=== PATIENT | male | born 1960 | race Caucasian/White ===

== ENCOUNTER → 2018-01-13 | Outpatient (CLI) | payer BC ==
--- NOTE | 2018-01-13 12:42 | RADIOLOGY REPORT (SQ) ---
EXAM DESCRIPTION: CHEST PA/LATERAL COMPLETED DATE/TIME: 01/13/2018 12:20 pm REASON FOR STUDY: COUGH COMPARISON: AP chest 03/13/2010 EXAM PARAMETERS: NUMBER OF VIEWS: two views TECHNIQUE: Digital Frontal and Lateral radiographic views of the chest acquired. RADIATION DOSE: NA LIMITATIONS: none FINDINGS: LUNGS AND PLEURA: Right middle lobe consolidation worrisome for pneumonia. This should be followed to radiographic clearing, to ensure there is no underlying hilar or endobronchial lesion. Left lung well inflated and clear. No pleural effusion. No pneumothorax. MEDIASTINUM AND HILAR STRUCTURES: No masses or contour abnormalities. HEART AND VASCULAR STRUCTURES: Heart normal size. No evidence for failure. BONES: No acute findings. HARDWARE: Lap band prosthesis bottom edge of the field of view OTHER: No other significant finding. IMPRESSION: Right middle lobe pneumonia. This should be followed to radiographic clearing. TECHNICAL DOCUMENTATION: JOB ID: [id number] [employer]- All Rights Reserved Reading location - IP/workstation name: [email or web address]
== END ==
LOC: OD 12:13
PROVIDERS: ATTEND Nurse Practitioner Acute Care
DX: J18.9 Pneumonia, unspecified organism (principal)
CPT/HCPCS: 71046

== ENCOUNTER → 2018-01-27 | Outpatient (CLI) | payer BC ==
--- NOTE | 2018-01-27 13:37 | RADIOLOGY REPORT (SQ) ---
EXAM DESCRIPTION: CHEST PA/LATERAL COMPLETED DATE/TIME: 01/27/2018 11:59 am REASON FOR STUDY: PNEUMONIA OF RT MIDDLE LOBE DUE TO INFECTIOUS ORGANISM COMPARISON: 01/13/2018 EXAM PARAMETERS: NUMBER OF VIEWS: two views TECHNIQUE: Digital Frontal and Lateral radiographic views of the chest acquired. RADIATION DOSE: NA LIMITATIONS: none FINDINGS: LUNGS AND PLEURA: Significant resolution of the right middle lobe pneumonia. Left lung is clear. MEDIASTINUM AND HILAR STRUCTURES: No masses or contour abnormalities. HEART AND VASCULAR STRUCTURES: Heart normal size. No evidence for failure. BONES: No acute findings. HARDWARE: None in the chest. OTHER: No other significant finding. IMPRESSION: Significant resolution of the right middle lobe pneumonia. TECHNICAL DOCUMENTATION: JOB ID: [id number] [employer]- All Rights Reserved Reading location - IP/workstation name: [email or web address]
== END ==
LOC: OD 11:48
PROVIDERS: ATTEND Nurse Practitioner Family
DX: J18.1 Lobar pneumonia, unspecified organism (principal)
CPT/HCPCS: 71046

== ENCOUNTER 2018-07-30 15:10 | Inpatient (IN) | payer BC ==
[2018-07-30 16:24] LABS: ABSOLUTE LYMPHOCYTES (AUTO) 0.6 10^3/uL (0.5-4.7); ABSOLUTE NEUT (AUTO) 8.3 10^3/uL (1.7-8.2); BASOPHILS % (AUTO) 0.3 % (0-2); EOSINOPHILS % (AUTO) 0.1 % (0-6); HEMATOCRIT 49.2 % (37.9-51.0); HEMOGLOBIN 16.7 g/dL (13.5-17.0); LYMPHOCYTES % (AUTO) 6.3 % (13-45); MEAN CORPUSCULAR HEMOGLOBIN 29.8 pg (27.0-33.4); MEAN CORPUSCULAR HGB CONC 33.9 g/dL (32.0-36.0); MEAN CORPUSCULAR VOLUME 88 fl (80-97); MONOCYTES % (AUTO) 9.9 % (3-13); PLATELET COUNT 150 10^3/uL (150-450); RED BLOOD COUNT 5.61 10^6/uL (4.35-5.55); RED CELL DISTRIBUTION WIDTH 14.4 % (11.5-14.0); SEGMENTED NEUTROPHILS % (AUTO) 83.4 % (42-78); TOTAL CELLS COUNTED % (AUTO) 100 %; WHITE BLOOD COUNT 9.9 10^3/uL (4.0-10.5)
[2018-07-30 16:32] LABS: INTERNATIONAL RATION (INR) 1.12
[2018-07-30 16:33] LABS: PARTIAL THROMBOPLASTIN TIME 34.8 SEC (23.5-35.8)
[2018-07-30] MEDS ORDERED: DILTIAZEM HCL INJ 25 MG/5 ML VIAL IV ONE (16:33)
[2018-07-30] MEDS ORDERED: ACETAMINOPHEN 325 MG TABLET PO ONE (16:33)
[2018-07-30] MEDS ORDERED: DILTIAZEM HCL/D5W 125 MG/125 ML RTUINJ IV PRN (16:33)
[2018-07-30] MEDS ORDERED: NORMAL SALINE 1000 ML 1,000 ML IV ONE (16:34)
--- NOTE | 2018-07-30 16:38 | ER Document Report ---
ED General - General Chief Complaint: Cough Stated Complaint: CHEST PAIN Time Seen by Provider: 07/30/18 16:07 Information source: Patient Notes: Patient is a 57-year-old male with minimal past medical history who presents today with 4 days of a nonproductive dry cough. He is also had some intermittent fevers and body aches. He denies any headache, chest pain, palpitations, calf pain or leg swelling, vomiting, diarrhea, or rash. He went to see his primary care physician who told him that he had an irregular hea rtbeat and was told to come to the emergency department. Again the patient denies any palpitations, chest pain, or leg swelling. Patient states he has not taken any cough medications that contain any stimulants such as Sudafed. TRAVEL OUTSIDE OF THE [place] IN LAST 30 DAYS: No - HPI Onset: Other - See above Onset/Duration: Gradual Quality of pain: No pain Severity: Moderate Pain Level: 0 Associated symptoms: Other - See above Exacerbated by: Denies Relieved by: Denies Similar symptoms previously: No Recently seen / treated by doctor: Yes - Related Data Allergies/Adverse Reactions: No Known Allergies Allergy (Verified 03/31/14 11:31) Past Medical History - Social History Smoking Status: Unknown if Ever Smoked Cigarette use (# per day): No Family History: Reviewed & Not Pertinent Endocrine Medical History: Reports: Hx Diabetes Mellitus Type 2 - Immunizations Hx Diphtheria, Pertussis, Tetanus Vaccination: No Hx Pneumococcal Vaccination: 08/04/00 Review of Systems - Review of Systems Constitutional: Fever EENT: denies: Eye discharge, Nose congestion, Nose discharge Cardiovascular: denies: Chest pain, Palpitations, Syncope, Dizziness, Lightheaded Respiratory: Cough. denies: Hemoptysis, Short of breath Gastrointestinal: denies: Vomiting Genitourinary: denies: Dysuria Musculoskeletal: denies: Leg swelling Skin: Other - no hives. denies: Rash Neurological/Psychological: Other - no slurred speech -: Yes All other systems reviewed and negative Physical Exam - Vital signs Vitals: Temp Pulse Resp BP Pulse Ox 100 F 87 18 142/78 H 93 07/30/18 15:22 07/30/18 15:22 07/30/18 15:22 07/30/18 15:22 07/30/18 15:22 Notes: Reviewed vital signs and nursing note as charted by RN. CONSTITUTIONAL: Alert and oriented and responds appropriately to questions. Well-appearing; well-nourished HEAD: Normocephalic; atraumatic EYES: PERRL; Conjunctivae clear, sclerae non-icteric ENT: Normal nose; no rhinorrhea; moist mucous membranes; pharynx without lesions noted NECK: Supple without meningismus; non-tender; no cervical lymphadenopathy, no m asses CARD: Tachycardic and irregular; no murmurs; symmetric distal pulses RESP: Normal chest excursion without splinting or tachypnea; breath sounds clear and equal bilaterally; very scant bilateral wheezing with some scattered rhonchi without rales ABD/GI: Normal bowel sounds; non-distended; soft, non-tender; no palpable organomegaly or masses BACK: The back appears normal with a 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 Grooming and personal hygiene are appropriate. Course - Re-evaluation Re-evalutation: Given the above history and physical examination we will order blood work, blood cultures, fluids, antipyretics, influenza, obtain an EKG, and reassess. Heart rate is tachycardic. Patient denies chest pain or shortness of breath. Given the fever of 102.7 earlier today, without chest pain, I do believe pulmonary embolism to be extremely unlikely. 07/30/18 16:37 EKG shows a heart rate of 127, atrial fibrillation, normal axis, no obvious ST elevation or depression. Inverted T waves in lead III Vital signs are otherwise stable. I will provide a diltiazem bolus and a drip along with the Tylenol. A coagulation profile has been sent. 07/30/18 17:21 Heart rate has improved. Still no chest pain. X-ray shows a left lower lobe pneumonia. Antibiotics have been started. Blood cultures are pending. Patient is currently on a Cardizem drip. Patient will be admitted to the hospitalist service. - Vital Signs Vital signs: Temp Pulse Resp BP Pulse Ox 100 F 87 25 H 123/73 96 07/30/18 15:22 07/30/18 15:22 07/30/18 17:02 07/30/18 17:02 07/30/18 17:02 - Laboratory Result Diagrams: 07/30/18 16:00 07/30/18 16:00 Laboratory results interpreted by me: 07/30/18 07/30/18 16:00 16:00 RBC 5.61 H RDW 14.4 H Seg Neutrophils % 83.4 H Lymphocytes % 6.3 L Absolute Neutrophils 8.3 H Glucose 117 H ALT 11 L Critical Care Note - Critical Care Note Total time excluding time spent on procedures (mins): 35 Discharge - Discharge Clinical Impression: Atrial fibrillation with rapid ventricular response Left lower lobe pneumonia Qualifiers: Pneumonia type: due to unspecified organism Qualified Code(s): J18.1 - Lobar pneumonia, unspecified organism Condition: Fair Disposition: ADMITTED INPATIENT Admitting Provider: Hospitalist Unit Admitted: Telemetry Referrals: BEKA VIDAL FNP-C [Primary Care Provider] - Follow up as needed
[2018-07-30 16:46] LABS: ALANINE AMINOTRANSFERASE 11 U/L (21-72); ALBUMIN 4.1 g/dL (3.5-5.0); ALKALINE PHOSPHATASE 77 U/L (38-126); ANION GAP 10 (5-19); ASPARTATE AMINO TRANSFERASE 31 U/L (17-59); BILIRUBIN,DIRECT 0.3 mg/dL (0.0-0.4); BILIRUBIN,TOTAL 1.2 mg/dL (0.2-1.3); BLOOD UREA NITROGEN 19 mg/dL (7-20); CALCIUM 8.4 mg/dL (8.4-10.2); CARBON DIOXIDE 28 mmol/L (22-30); CHLORIDE 101 mmol/L (98-107); GLUCOSE 117 mg/dL (75-110); POTASSIUM 3.8 mmol/L (3.6-5.0); SODIUM 138.7 mmol/L (137-145); TOTAL PROTEIN 7.7 g/dL (6.3-8.2)
--- NOTE | 2018-07-30 17:13 | RADIOLOGY REPORT (SQ) ---
EXAM DESCRIPTION: CHEST 2 VIEWS COMPLETED DATE/TIME: 07/30/2018 5:04 pm REASON FOR STUDY: 1, cough; fever COMPARISON: 03/13/2010 EXAM PARAMETERS: NUMBER OF VIEWS: two views TECHNIQUE: Digital Frontal and Lateral radiographic views of the chest acquired. RADIATION DOSE: NA LIMITATIONS: none FINDINGS: LUNGS AND PLEURA: Ill-defined opacification in the left base. MEDIASTINUM AND HILAR STRUCTURES: No masses or contour abnormalities. HEART AND VASCULAR STRUCTURES: Heart normal size. No evidence for failure. BONES: No acute findings. HARDWARE: None in the chest. OTHER: No other significant finding. IMPRESSION: Left lower lobe pneumonia. TECHNICAL DOCUMENTATION: JOB ID: [id number] [employer]- All Rights Reserved Reading location - IP/workstation name: [email or web address]
[2018-07-30] MEDS ORDERED: AZITHROMYCIN INJ 500 MG VIAL IV ONE (17:21)
[2018-07-30] MEDS ORDERED: CEFTRIAXONE 1 GM/D5W RTU 1 GM/50 ML RTUPB IV ONE (17:21)
[2018-07-30] MEDS ORDERED: ASPIRIN 325 MG TABLET PO ONE (17:23)
[2018-07-30 17:34] LABS: A TYPE INFLUENZA AG NEGATIVE (NEGATIVE); B INFLUENZA AG NEGATIVE (NEGATIVE)
[2018-07-30] MEDS ORDERED: ACETAMINOPHEN 325 MG TABLET PO PRN (17:48)
[2018-07-30] MEDS ORDERED: ONDANSETRON HCL INJ/PF 4 MG/2 ML SDV IV PRN (17:48)
[2018-07-30] MEDS ORDERED: LEVALBUTEROL HCL NEB 0.63 MG/3 ML AMPUL NEB PRN (17:48)
--- NOTE | 2018-07-30 18:15 | PDOC H&P ---
History of Present Illness Admission Date/PCP: 07/30/18 17:33 [facility] Patient complains of: Fever and shortness of breath for the last 5 days History of Present Illness: SHELBY CASTILLO is a 57 year old male with history of morbid obesity, ex-smoker, v entricular disease, diabetes, varicose veins came to the emergency room with complaints of fever and shortness of breath for the last 5 days. According to the patient the symptoms started 5 days ago associated with fever chills and sweating, cough with greenish sputum, decided to ride it out but unable to do so he went went to see the primary care physician today and the patient was told that he has a left-sided pneumonia and he has new onset atrial fibrillation so patient decided to came to the emergency room today. In the emergency room chest x-ray shows left lower lobe pneumonia and a EKG shows new onset atrial fibrillation patient was given azithromycin 400 mg IV in the ER and medical consult was called for admission. I went to talk to the patient patient is not in distress alert and oriented communicating very well. He confirmed with me the above history. Also told me he has a 2 episodes of pneumonia this year but he was not admitted he was treated by the PCP with outpatient antibiotic therapy. She did not receive the flu vaccination this year. Flu is negative in the ER. Cultures were sent from the ER. Past Medical History Endocrine Medical History: Reports: Diabetes Mellitus Type 2 Past Surgical History Past Surgical History: Reports: Other - History of lap band surgery for morbid obesity. Social History Smoking Status: Unknown if Ever Smoked - Advance Directive Resuscitation Status: Full Code Family History Family History: Reviewed & Not Pertinent Parental Family History Reviewed: Yes - Mother with melanoma, mother with leukemia. Children Family History Reviewed: Yes Sibling(s) Family History Reviewed.: Yes Medication/Allergy Home Medications: No Home Medications 03/31/14 Allergies/Adverse Reactions: No Known Allergies Allergy (Verified 03/31/14 11:31) Review of Systems Constitutional: PRESENT: chills, fever(s), other - sweating Eyes: ABSENT: visual disturbances Ears: ABSENT: hearing changes Nose, Mouth, and Throat: ABSENT: sore throat Cardiovascular: ABSENT: chest pain, dyspnea on exertion, edema, orthropnea Respiratory: PRESENT: cough, sputum, other - Wheezing. Gastrointestinal: PRESENT: nausea, vomiting, other - Patient vomited 3 times attributing it to severe coughing. Neurological: PRESENT: other - headaches Physical Exam Vital Signs: Temp Pulse Resp BP Pulse Ox 99.8 F 87 25 H 123/73 96 07/30/18 18:05 07/30/18 15:22 07/30/18 17:02 07/30/18 17:02 07/30/18 17:02 Intake & Output 07/29/18 07/30/18 07/31/18 06:59 06:59 06:59 Intake Total 2 Balance 2 Weight 130.9 kg General appearance: PRESENT: mild distress Head exam: PRESENT: atraumatic Eye exam: PRESENT: PERRLA Mouth exam: PRESENT: moist Neck exam: ABSENT: carotid bruit, JVD, lymphadenopathy, thyromegaly Respiratory exam: PRESENT: decreased breath sounds, wheezes Cardiovascular exam: PRESENT: irregular rhythm, tachycardia GI/Abdominal exam: PRESENT: normal bowel sounds, soft. ABSENT: distended, guarding, mass, organolmegaly, rebound, tenderness Neurological exam: PRESENT: alert, awake, oriented to person, oriented to place, oriented to time, oriented to situation, CN II-XII grossly intact. ABSENT: motor sensory deficit Psychiatric exam: PRESENT: appropriate affect, normal mood. ABSENT: homicidal ideation, suicidal ideation Results Laboratory Results: 07/30/18 16:00 07/30/18 16:00 07/30/18 07/30/18 16:00 16:00 WBC 9.9 RBC 5.61 H Hgb 16.7 Hct 49.2 MCV 88 MCH 29.8 MCHC 33.9 RDW 14.4 H Plt Count 150 Seg Neutrophils % 83.4 H Lymphocytes % 6.3 L Monocytes % 9.9 Eosinophils % 0.1 Basophils % 0.3 Absolute Neutrophils 8.3 H Absolute Lymphocytes 0.6 Absolute Monocytes 1.0 Absolute Eosinophils 0.0 Absolute Basophils 0.0 Sodium 138.7 Potassium 3.8 Chloride 101 Carbon Dioxide 28 Anion Gap 10 BUN 19 Creatinine 1.06 Est GFR ( Amer) > 60 Est GFR (Non-Af Amer) > 60 Glucose 117 H Calcium 8.4 Total Bilirubin 1.2 AST 31 ALT 11 L Alkaline Phosphatase 77 Total Protein 7.7 Albumin 4.1 07/30/18 16:00 Troponin I < 0.012 Impressions: Chest X-Ray 07/30/18 16:09 IMPRESSION: Left lower lobe pneumonia. Assessment & Plan - Diagnosis (1) Left lower lobe pneumonia Qualifiers: Pneumonia type: due to unspecified organism Qualified Code(s): J18.1 - Lobar pneumonia, unspecified organism Is this a current diagnosis for this admission?: Yes Plan: 07/30/2018-plan is to place the patient in telemetry. Started on IV antibiotics Rocephin 1 g IV daily Zithromax 500 mg IV daily sputum cultures blood cultures s ent already urine culture was requested. Done Xopenex nebulizations for wheezing. On oxygen 2 L via nasal cannula. (2) Atrial fibrillation with rapid ventricular response Is this a current diagnosis for this admission?: Yes Plan: 07/30/2018-for new onset atrial fibrillation requested for cardiology consult, echocardiogram was requested, discussed about blood thinners with the patient, started on heparin 5000 units subcu every 8 hours. Enzymes x3 was requested. Initial troponin was negative. (3) Obesity (BMI 30-39.9) Is this a current diagnosis for this admission?: Yes Plan: 07/30/2018-diet exercise weight loss lifestyle modification was discussed with the patient. The consult was requested. - Time Time Spent: 50 to 70 Minutes Medications reviewed and adjusted accordingly: Yes Anticipated discharge: Home
--- NOTE | 2018-07-30 19:55 | RADIOLOGY REPORT (SQ) ---
EXAM DESCRIPTION: CT CHEST WITHOUT COMPLETED DATE/TIME: 07/30/2018 7:42 pm REASON FOR STUDY: pneumonia COMPARISON: 07/30/2018 TECHNIQUE: CT scan performed of the chest without intravenous contrast. Images reviewed with lung, soft tissue and bone windows. Reconstructed coronal and sagittal MPR images reviewed. All images st ored on PACS. All CT scanners at this facility use dose modulation, iterative reconstruction, and/or weight based d osing when appropriate to reduce radiation dose to as low as reasonably achievable (ALARA). [facility]: Dose Right [facility]: CareDose [facility]: Dose Right [facility]: Teradose 4D [facility]: [employer] RADIATION DOSE: CT Rad equipment meets quality standard of care and radiation dose reduction techniq ues were employed. CTDIvol: 20.7 mGy. DLP: 836 mGy-cm. mGy. LIMITATIONS: No technical limitations. FINDINGS: LUNGS AND PLEURA: Diffuse patchy opacities in the left lower lobe with tree-in-bud appeara nce. Minimal similar findings in the right middle lobe. HILAR AND MEDIASTINAL STRUCTURES: Scattered nodes in mediastinum likely reactive. HEART AND VASCULAR STRUCTURES: No aneurysm. No pericardial effusion. UPPER ABDOMEN: Lap band surgery. THYROID AND OTHER SOFT TISSUES: No masses. No adenopathy. BONES: No significant finding. HARDWARE: None in the chest. OTHER: No other significant findings. IMPRESSION: Left lower lobe and minimal right middle lobe pneumonia. TECHNICAL DOCUMENTATION: JOB ID: [id number] Quality ID # [id number]: Final reports with documentation of one or more dose reduction techniques (e.g., Au tomated exposure control, adjustment of the mA and/or kV according to patient size, use of iterative reconstruction technique) 2010 [employer]- All Rights Reserved Reading location - IP/workstation name: [email or web address]
[2018-07-30 20:09] LABS: CREATINE KINASE MB 0.76 ng/mL (<4.55); TROPONIN I < 0.012 ng/mL
[2018-07-30] MEDS: NORMAL SALINE 1000 ML 1,000 ML IV PRN (20:16)
[2018-07-30] MEDS: HEPARIN SOD (PORCINE) 5,000 UNIT/ML 1 ML SYRINGE SUBCUT SCH (22:05)
[2018-07-30] MEDS: FAMOTIDINE 20 MG TABLET PO SCH (22:07)
[2018-07-30] MEDS: METHYLPREDNISOLONE INJ 40 MG/1 ML SDV IV SCH (22:11)
[2018-07-30] MEDS: ZOLPIDEM TARTRATE 5 MG TABLET PO PRN (22:11)
[2018-07-31 00:31] LABS: CREATINE KINASE MB 1.42 ng/mL (<4.55)
[2018-07-31 00:33] LABS: TROPONIN I < 0.012 ng/mL
[2018-07-31] MEDS: HEPARIN SOD (PORCINE) 5,000 UNIT/ML 1 ML SYRINGE SUBCUT SCH ×3 (06:21→21:37)
[2018-07-31] MEDS: METHYLPREDNISOLONE INJ 40 MG/1 ML SDV IV SCH ×3 (06:24→21:37)
[2018-07-31] MEDS ORDERED: DILTIAZEM HCL 60 MG TABLET PO ONE (07:45)
--- NOTE | 2018-07-31 09:34 | PDOC PROGRESS REPORT ---
Subjective Progress Note for:: 07/31/18 Subjective:: Patient is comfortably in the bed communicating very well no acute events in the last 24 hours. He complained about a couple of episodes of heavy sweating last night but no fever. His any chest pains palpitations. Reason For Visit: PNEUMONIA WITH ATRIAL FIB Physical Exam Vital Signs: Temp Pulse Resp BP Pulse Ox 97.6 F 89 18 131/90 H 97 07/31/18 07:44 07/31/18 07:44 07/31/18 07:44 07/31/18 07:44 07/31/18 07:44 Intake & Output 07/30/18 07/31/18 08/01/18 06:59 06:59 06:59 Intake Total 16 65 Output Total 0 600 Balance 16 -535 Weight 133.7 kg General appearance: PRESENT: no acute distress Head exam: PRESENT: atraumatic Eye exam: PRESENT: PERRLA Neck exam: ABSENT: carotid bruit, JVD, lymphadenopathy, thyromegaly Respiratory exam: PRESENT: other - Chest examination much improved wheezing both sides. Cardiovascular exam: PRESENT: irregular rhythm, other - Patient heart rate is around 100 and atrial fibrillation. GI/Abdominal exam: PRESENT: normal bowel sounds, soft. ABSENT: tenderness Extremities exam: PRESENT: full ROM. ABSENT: calf tenderness, clubbing, pedal edema Neurological exam: PRESENT: alert, awake, oriented to person, oriented to place, oriented to time, oriented to situation, CN II-XII grossly intact. ABSENT: motor sensory deficit Psychiatric exam: PRESENT: appropriate affect, normal mood. ABSENT: homicidal ideation, suicidal ideation Results Laboratory Results: 07/30/18 16:00 07/30/18 16:00 07/30/18 07/30/18 07/30/18 16:00 16:00 19:00 WBC 9.9 RBC 5.61 H Hgb 16.7 Hct 49.2 MCV 88 MCH 29.8 MCHC 33.9 RDW 14.4 H Plt Count 150 Seg Neutrophils % 83.4 H Lymphocytes % 6.3 L Monocytes % 9.9 Eosinophils % 0.1 Basophils % 0.3 Absolute Neutrophils 8.3 H Absolute Lymphocytes 0.6 Absolute Monocytes 1.0 Absolute Eosinophils 0.0 Absolute Basophils 0.0 Sodium 138.7 Potassium 3.8 Chloride 101 Carbon Dioxide 28 Anion Gap 10 BUN 19 Creatinine 1.06 Est GFR ( Amer) > 60 Est GFR (Non-Af Amer) > 60 Glucose 117 H Lactic Acid 1.1 Calcium 8.4 Total Bilirubin 1.2 AST 31 ALT 11 L Alkaline Phosphatase 77 Total Protein 7.7 Albumin 4.1 07/30/18 23:12 WBC RBC Hgb Hct MCV MCH MCHC RDW Plt Count Seg Neutrophils % Lymphocytes % Monocytes % Eosinophils % Basophils % Absolute Neutrophils Absolute Lymphocytes Absolute Monocytes Absolute Eosinophils Absolute Basophils Sodium Potassium Chloride Carbon Dioxide Anion Gap BUN Creatinine Est GFR ( Amer) Est GFR (Non-Af Amer) Glucose Lactic Acid 0.8 Calcium Total Bilirubin AST ALT Alkaline Phosphatase Total Protein Albumin 07/30/18 07/30/18 07/30/18 16:00 19:00 23:12 CK-MB (CK-2) 0.76 1.42 Troponin I < 0.012 < 0.012 < 0.012 Impressions: Chest CT 07/30/18 00:00 IMPRESSION: Left lower lobe and minimal right middle lobe pneumonia. Chest X-Ray 07/30/18 16:09 IMPRESSION: Left lower lobe pneumonia. Assessment & Plan - Diagnosis (1) Left lower lobe pneumonia Qualifiers: Pneumonia type: due to unspecified organism Qualified Code(s): J18.1 - Lobar pneumonia, unspecified organism Is this a current diagnosis for this admission?: Yes Plan: 07/30/2018-plan is to place the patient in telemetry. Started on IV antibiotics Rocephin 1 g IV daily Zithromax 500 mg IV daily sputum cultures blood cultures sent already urine culture was requested. Done Xopenex nebulizations for wh eezing. On oxygen 2 L via nasal cannula. 07/31/2018-chest CT was done yesterday shows left lower lobe pneumonia and right middle lobe pneumonia. Patient vital signs today temperature 97.6 blood pr essure 130/90. Oxygen 97% on room air. WBC is 9.9. The cultures are pending. Patient is on IV Rocephin 1 g daily, Zithromax 500 mg IV daily. And is to continue the present management. Sputum culture is pending. (2) Atrial fibrillation with rapid ventricular response Is this a current diagnosis for this admission?: Yes Plan: 07/30/2018-for new onset atrial fibrillation requested for cardiology consult, echocardiogram was requested, discussed about blood thinners with the patient, started on heparin 5000 units subcu every 8 hours. Enzymes x3 was requested. Initial troponin was negative. 07/31/2018-patient was started on Cardizem drip yesterday. Heart rate in the 70s-80s. I discontinued Cardizem drip started on p.o. Cardizem 60 mg every 8 hours. I requested the nurse to call me if the heart rate goes up more than 120, if necessary we going to put her back on Cardizem drip. Echocardiogram was done last night and report is pending. Patient is on heparin 5000 units every 8 hours. On the cardiology recommendations I am going to put her on Eliquis or Xarelto. (3) Obesity (BMI 30-39.9) Is this a current diagnosis for this admission?: Yes Plan: 07/30/2018-diet exercise weight loss lifestyle modification was discussed with the patient. The consult was requested. 07/31/2018-patient's weight is 133.7 kg again diet exercise and weight loss was advised.. - Time Time Spent with patient: 15-24 minutes Medications reviewed and adjusted accordingly: Yes Anticipated discharge: Home
[2018-07-31] MEDS ORDERED: METOPROLOL TARTRATE PF/INJ 5 MG/5 ML SDV IV PRN (09:37)
[2018-07-31] MEDS ORDERED: CEFTRIAXONE INJ 1000 MG VIAL IV SCH (10:00)
[2018-07-31] MEDS ORDERED: AZITHROMYCIN INJ 500 MG VIAL IV SCH (10:00)
[2018-07-31] MEDS: NORMAL SALINE 1000 ML 1,000 ML IV PRN (10:07)
[2018-07-31] MEDS: DOCUSATE SODIUM 100 MG/10 ML UDC PO SCH ×2 (10:07→10:09)
[2018-07-31] MEDS: CEFTRIAXONE SODIUM 1,000 MG in DEXTROSE 5%-WATER 50 ML IV SCH (11:20)
[2018-07-31] MEDS: FAMOTIDINE 20 MG TABLET PO SCH ×2 (11:20→21:37)
[2018-07-31 11:30] LABS: ALANINE AMINOTRANSFERASE 19 U/L (21-72); ALBUMIN 4.7 g/dL (3.5-5.0); ALKALINE PHOSPHATASE 93 U/L (38-126); ANION GAP 17 (5-19); ASPARTATE AMINO TRANSFERASE 35 U/L (17-59); BILIRUBIN,DIRECT 0.4 mg/dL (0.0-0.4); BILIRUBIN,TOTAL 1.2 mg/dL (0.2-1.3); BLOOD UREA NITROGEN 25 mg/dL (7-20); CALCIUM 9.3 mg/dL (8.4-10.2); CARBON DIOXIDE 20 mmol/L (22-30); CHLORIDE 108 mmol/L (98-107); GLUCOSE 170 mg/dL (75-110); POTASSIUM 4.3 mmol/L (3.6-5.0); SODIUM 145.3 mmol/L (137-145); TOTAL PROTEIN 8.4 g/dL (6.3-8.2)
[2018-07-31] MEDS ORDERED: METOPROLOL TARTRATE PF/INJ 5 MG/5 ML SDV IV ONE (12:00)
[2018-07-31] MEDS ORDERED: DILTIAZEM HCL 60 MG TABLET PO SCH (14:00)
--- NOTE | 2018-07-31 14:58 | EKG REPORT ---
SEVERITY:- ABNORMAL ECG - ATRIAL FIBRILLATION, V-RATE 101-155 BORDERLINE T ABNORMALITIES, INFERIOR LEADS : Confirmed by: Jamin Carvalho 31-Jul-2018 14:57:29
[2018-07-31] MEDS: AZITHROMYCIN 500 MG in DEXTROSE 5%-WATER 250 ML IV SCH (17:48)
[2018-07-31] MEDS: METOPROLOL TARTRATE 50 MG TABLET PO SCH (21:37)
[2018-07-31] MEDS: ZOLPIDEM TARTRATE 5 MG TABLET PO PRN (21:37)
--- NOTE | 2018-07-31 23:11 | PDOC CONSULTATION ---
Consultation-Blank Consultation: CARDIOLOGY CONSULTATION by Dr. Millard assessment on 07/31/2018. Patient seen at 11:30 AM on 07/31/2018. Note 60 minutes spent on this patient. With more than 50% of time spent in direct patient care. REASON FOR CONSULTATION: Patient with new onset atrial fibrillation. HISTORY OF PRESENT ILLNESS: Patient is a 57-year-old male who states that recently he had some cough and productive of greenish sputum. He also had fevers and chills. He went to his primary care physician who diagnosed him as having probably pneumonia and also found his heart rate to be irregular and sent him to the emergency room. In the emergency room the patient was found to be in atrial fibrillation. With a fast ventricular respons. The patient chest x-ray surgery was suggestive of left lower lobe pneumonia, and the patient CT scan showed a left lower lobe pneumonia and also a right middle lobe pneumonia. The patient initially was treated with IV Cardizem infusion, and at present the Cardizem drip has been stopped and the patient is a p.o. Cardizem. Of note the patient denies any chest pain or discomfort. He does have shortness of breath. There is no PND orthopnea. Surprisingly he is not aware of any irregular heartbeat or palpitations. The patient denies any prior such irregular heartbeat. PAST MEDICAL ILLNESS: The patient states in the past he had sleep apnea, on CPAP, and was a diabetic. He was also morbidly obese at that time, and after laparoscopic bariatric surgery for weight loss. Patient lost weight, and was no more a diabetic. And he did not need any antidiabetic treatment since he was not a diabetic anymore. He denies any chest hypertension. He denies any chest pain or discomfort. There is no history of coronary artery disease. No history of UT or anginal symptoms. No history of congestive heart failure. No prior history of atrial fibrillation. There is no history of PND orthopnea or syncope. No history of thyroid disease. No history of TIA or CVA. No history of asthma or COPD. Patient states when he was morbidly obese prior to his bariatric surgery he was using CPAP for sleep apnea, but with losing weight he has not had to use it anymore, and he states that his sleep apnea has resolved. There is no history of anxiety or depression. PAST SURGICAL HISTORY: Prior history of bariatric surgery/lap band surgery for morbid obesity. FAMILY HISTORY: The patient thinks his mother had CAD. Mother also had melanoma. ALLERGIES: There is no known allergies. SOCIAL HISTORY: The patient quit smoking more than 35 years ago. There is no history of EtOH abuse. DISPOSITION: The patient is a full code his is his surrogate healthcare decision maker. REVIEW OF SYSTEMS:REVIEW OF SYSTEMS: CONSTITUTIONAL: There is a history of fever and chills, but no rigors, and no generalized weakness, but complains of some fatigue. EAD: No history of headaches or head injury. EYES: No history of amblyopia diplopia no history of amaurosis fugax. EARS: No history of tinnitus. This patient has mild hearing loss, no vertigo. NOSE: The patient is seasonal allergies, but no hayfever. There is no nosebleeds. MOUTH: No altered taste sensation no ulcers in the mouth THROAT: No history of odynophagia dysphagia no recurrent sore throats. SKIN: No history of pruritus no history of allergies discoloration of the skin. No history of skin cancer, no history of psoriasis. NECK: No neck pain. No lymphadenopathy. No goiter. LUNGS: Recent symptoms of cough with greenish sputum, and chest x-ray and CTA of the chest show pneumonia. No history of asthma COPD no history of wheezing. No history of pulmonary embolism. No history of pleuritic chest pain no hemoptysis. No history of sleep apnea. No symptoms of upper or lower respiratory tract infections. HEART: No history of hypertension. No history of prior paroxysmal atrial fibrillation. No history of congestive heart failure .There is a history of UT anginal symptoms or coronary artery disease. No syncope. No history of leg edema no history of PND orthopnea. Denies any history of palpitations. In fact even when he is in atrial fibrillation with rapid ventricular response, the patient had no palpitations. ENDOCRINE:There is a prior history of diabetes. But he states after he lost weight after bariatric surgery, he was not a diabetic anymore, and is not on antidiabetic medications or antidiabetic diet. No history of heat or cold intolerance no history of polydipsia polyuria. The p atient has no hyperthyroidism or hypothyroidism.. RENAL: No history of chronic kidney disease. No symptoms of hematuria pyuria or dysuria. No symptoms of UTI. GI: History of bariatric/gastric bypass surgery in the past no history of GI bleed no history of GERD no history of peptic ulcer disease no history of fatty food intolerance. No history of hepatitis. No history of jaundice. No history of altered bowel movements. MUSCULOSKELETAL: Denies history of arthritis or collagen vascular disease. INSURANCE CLAIMS ADJUSTER: No history of TIA or CVA. No history of headaches migraines or seizures. No history of sleep apnea. PSYCHIATRIC: No history of anxiety or depression. No history of suicidal ideation. No history of homicidal ideation. VASCULAR: The patient does have ascending and descending thoracic aortic aneurysms which is stable and the patient is asymptomatic. No DVT. No history of calf or buttock claudication. HEMATOLOGICAL: No history of bleeding diathesis no history of clotting disorder s. PHYSICAL EXAMINATION: The patient is moderate to morbidly obese. He is well- groomed. He is in no acute distress. Selected Entries 07/31/18 11:31 Temperature 98.0 F Temperature Oral Source Pulse Rate 97 Respiratory 16 Rate Blood Pressure 130/79 H Blood Pressure 96 Mean BP Location Left Arm BP Position Sitting O2 Sat by Pulse 97 Oximetry Oxygen Delivery Room Air Method HEAD: Is atraumatic normocephalic. EYES: His pupils are equal round regular reactive to light accommodation there is no conjunctival pallor there is no scleral icterus. ENT: Is negative. NECK: Supple. There is mild JVD still present. Carotids are equal there is no bruit. There is no lymphadenopathy. There is no goiter. LUNGS: Decreased breath sounds in the in the left lower lobe, and the right middle lobe, with dry crackles. No rales of CHF. There is no chest wall tenderness. S1-S2 is heard S1 is of variable intensity. There is no S3 gallop there is no S4 gallop. There is systolic murmur of mitral regurgitation and tricuspid regurgitation present. There is no murmur of aortic stenosis or aortic regurgitation. There is no rub. Abdomen: Is obese. Nontender. Bowel sounds are well heard. There is no hepatosplenomegaly. EXTREMITIES: Femorals are deep. Femorals are diminished. There is no femoral bruits. Leg pulses are diminished. There is mild pedal edema. There is no DVT or cellulitis. There is no calf tenderness. There is no cyanosis or clubbing. INSURANCE CLAIMS ADJUSTER: The patient is conscious awake alert oriented x3 with no focal deficits. PSYCHIATRIC: The patient judgment and insight are intact his affect is normal 07/30/18 07/30/1818 16:00 16:00 16:00 WBC 9.9 RBC 5.61 H Hgb 16.7 Hct 49.2 MCV 88 MCH 29.8 MCHC 33.9 RDW 14.4 H Plt Count 150 PT 15.0 INR 1.12 APTT 34.8 Sodium Potassium Chloride Carbon Dioxide Anion Gap BUN Creatinine Est GFR (Non-Af Amer) Glucose Lactic Acid Calcium Magnesium Total Bilirubin Direct Bilirubin Neonat Total Bilirubin Neonat Direct Bilirubin Neonat Indirect Bili AST ALT Alkaline Phosphatase CK-MB (CK-2) Troponin I < 0.012 Total Protein Albumin 07/30/18 07/30/18 07/30/18 19:00 19:00 23:12 WBC RBC Hgb Hct MCV MCH MCHC RDW Plt Count PT INR APTT Sodium Potassium Chloride Carbon Dioxide Anion Gap BUN Creatinine Est GFR (Non-Af Amer) Glucose Lactic Acid 1.1 0.8 Calcium Magnesium Total Bilirubin Direct Bilirubin Neonat Total Bilirubin Neonat Direct Bilirubin Neonat Indirect Bili AST ALT Alkaline Phosphatase CK-MB (CK-2) 0.76 Troponin I < 0.012 Total Protein Albumin 07/30/18 07/31/18 23:12 09:31 WBC RBC Hgb Hct MCV MCH MCHC RDW Plt Count PT INR APTT Sodium 145.3 H Potassium 4.3 Chloride 108 H Carbon Dioxide 20 L Anion Gap 17 BUN 25 H Creatinine 0.67 Est GFR (Non-Af Amer) > 60 Glucose 170 H Lactic Acid Calcium 9.3 Magnesium 2.3 Total Bilirubin 1.2 Direct Bilirubin 0.4 Neonat Total Bilirubin Not Reportable Neonat Direct Bilirubin Not Reportable Neonat Indirect Bili Not Reportable AST 35 ALT 19 L Alkaline Phosphatase 93 CK-MB (CK-2) 1.42 Troponin I < 0.012 Total Protein 8.4 H Albumin 4.7 Home Meds Table No Home Medications 03/31/14 07/30/18 16:33 Acetaminophen [Tylenol 325 mg Tablet] 975 mg PO NOW ONE Diltiazem HCl [Cardizem Inj 25 mg/5 ml Vial] 10 mg IV NOW ONE 07/30/18 16:34 Normal Saline 1000 ml [NaCl 0.9% 1000 ml IV Soln] 1,000 ml IV BOLUS 07/30/18 17:21 Azithromycin [Zithromax Inj 500 mg Vial] 500 mg IV IVBAG (ED) ONE Ceftriaxone 1 gm/D5w RTU [Rocephin RTU 1 gm/D5w 50 ml Premix] 1 gm in 50 ml IV NOW 07/30/18 17:23 Aspirin [Aspirin 325 mg Tablet] 325 mg PO NOW ONE 07/30/18 17:48 Acetaminophen [Tylenol 325 mg Tablet] 650 mg PO Q4HP PRN Levalbuterol HCl [Xopenex Neb 0.63 mg/3 ml Ampul] 0.63 mg NEB RTQ4HP PRN Normal Saline 1000 ml [NaCl 0.9% 1000 ml IV Soln] 1,000 ml IV CONTINUOUS Ondansetron HCl/Pf [Zofran Inj/Pf 4 mg/2 ml Sdv] 4 mg IV Q6HP PRN Zolpidem Tartrate [Ambien 5 mg Tablet] 5 mg PO HSP PRN 07/30/18 22:00 Famotidine [Pepcid 20 mg Tablet] 20 mg PO Q12 Heparin Sodium,Porcine [Heparin Inj 5,000 Units/ml 1 ml Syringe] 5,000 unit SUBCUT Q8 Methylprednisolone Sod Succ/Pf [Solu-Medrol Inj/Pf 40 mg/1 ml Sdv] 40 mg IV Q8 07/31/18 03:15 Flu Vacc [id number](6Mos Up)/Pf [Fluarix Adlt Quad Vac 0.5 ml Syr] 0.5 ml IM .DISCHARGE PRN 07/31/18 07:45 Diltiazem HCl [Cardizem 60 mg Tablet] 60 mg PO NOW ONE 07/31/18 09:37 Metoprolol Tartrate [Lopressor Inj/Pf 5 mg/5 ml Sdv] 5 mg IV Q4HP PRN 07/31/18 10:00 Docusate Sodium [Colace Udc 100 mg/10 ml Oral Soln] 100 mg PO DAILY 07/31/18 11:30 Ceftriaxone Sodium [Rocephin Inj 1000 mg Vial] 1,000 mg Dextrose 5%-Water [D5w 50 ml IV Soln] 50 ml IV DAILY 07/31/18 12:00 Metoprolol Tartrate [Lopressor Inj/Pf 5 mg/5 ml Sdv] 2.5 mg IV NOW ONE 07/31/18 18:00 Azithromycin [Zithromax Inj 500 mg Vial] 500 mg Dextrose 5%-Water [D5w 250 ml IV Soln] 250 ml IV QPM 07/31/18 22:00 Metoprolol Tartrate [Lopressor 50 mg Tablet] 50 mg PO Q12 EKG: Shows atrial fibrillation. Diffuse nonspecific ST-T changes minor. The patient's chest x-ray: Shows left lower lobe pneumonia. The patient's CTA of the chest shows no pulmonary emboli. There is a left lower lobe pneumonia, and a right middle lobe pneumonia. No heart failure. ECHOCARDIOGRAM: Is a poor quality study. Probably the patient has low normal LV ejection fraction. IMPRESSION/RECOMMENDATION: 1. New onset atrial fibrillation with rapid ventricular response: At present the patient is off the IV Cardizem drip. We will change the patient's Cardizem to metoprolol. 2. Pneumonia left lower lobe, and right lower lobe, continue antibiotics. 3. Obesity. 4. The patient's corrected chads vas 2 score is actually 0. Hence would recommend that the patient be on 325 milligrams of aspirin. Later would recommend the patient have a IV Lexiscan Cardiolite stress test. Note medications reviewed, and medication adjusted. Management plan discussed with the attending physician on the case discussed with the patient patient's about the patient's clinical condition. Note medical decision making is of high complexity. 60 minutes spent on this patient, with more than 50% of time spent in direct patient care. We will follow with you
[2018-08-01] MEDS: NORMAL SALINE 1000 ML 1,000 ML IV PRN (01:17)
[2018-08-01] MEDS: METHYLPREDNISOLONE INJ 40 MG/1 ML SDV IV SCH ×3 (05:58→21:16)
[2018-08-01] MEDS: HEPARIN SOD (PORCINE) 5,000 UNIT/ML 1 ML SYRINGE SUBCUT SCH ×3 (05:59→21:16)
[2018-08-01 08:09] LABS: ABSOLUTE LYMPHOCYTES (AUTO) 0.7 10^3/uL (0.5-4.7); ABSOLUTE MONOCYTES (AUTO) 0.5 10^3/uL (0.1-1.4); ABSOLUTE NEUT (AUTO) 11.9 10^3/uL (1.7-8.2); BASOPHILS % (AUTO) 0.1 % (0-2); HEMOGLOBIN 15.1 g/dL (13.5-17.0); LYMPHOCYTES % (AUTO) 5.1 % (13-45); MEAN CORPUSCULAR HEMOGLOBIN 29.6 pg (27.0-33.4); MEAN CORPUSCULAR HGB CONC 34.3 g/dL (32.0-36.0); MEAN CORPUSCULAR VOLUME 86 fl (80-97); MONOCYTES % (AUTO) 4.1 % (3-13); PLATELET COUNT 163 10^3/uL (150-450); RED BLOOD COUNT 5.11 10^6/uL (4.35-5.55); RED CELL DISTRIBUTION WIDTH 14.2 % (11.5-14.0); SEGMENTED NEUTROPHILS % (AUTO) 90.7 % (42-78); TOTAL CELLS COUNTED % (AUTO) 100 %; WHITE BLOOD COUNT 13.2 10^3/uL (4.0-10.5)
[2018-08-01 08:10] LABS: INTERNATIONAL RATION (INR) 1.11; PROTHROMBIN TIME 14.8 SEC (11.4-15.4)
[2018-08-01 08:27] LABS: ANION GAP 9 (5-19); BLOOD UREA NITROGEN 27 mg/dL (7-20); CALCIUM 8.3 mg/dL (8.4-10.2); CARBON DIOXIDE 24 mmol/L (22-30); CHLORIDE 105 mmol/L (98-107); GLUCOSE 164 mg/dL (75-110); POTASSIUM 4.1 mmol/L (3.6-5.0); SODIUM 137.8 mmol/L (137-145)
[2018-08-01] MEDS ORDERED: DIGOXIN INJ 0.5 MG/2 ML AMPULE ONE (08:37)
[2018-08-01] MEDS ORDERED: DIGOXIN INJ 0.5 MG/2 ML AMPULE IV ONE (09:30)
[2018-08-01] MEDS: FAMOTIDINE 20 MG TABLET PO SCH ×2 (10:08→21:16)
[2018-08-01] MEDS: METOPROLOL TARTRATE 50 MG TABLET PO SCH ×2 (10:08→21:16)
[2018-08-01] MEDS: CEFTRIAXONE SODIUM 1,000 MG in DEXTROSE 5%-WATER 50 ML IV SCH (10:08)
[2018-08-01] MEDS ORDERED: DILTIAZEM HCL/D5W 125 MG/125 ML RTUINJ IV PRN (10:20)
[2018-08-01] MEDS ORDERED: NORMAL SALINE 1000 ML 1,000 ML IV PRN (10:30)
[2018-08-01] MEDS: DOCUSATE SODIUM 100 MG/10 ML UDC PO SCH (10:53)
--- NOTE | 2018-08-01 12:01 | PDOC PROGRESS REPORT ---
Subjective Progress Note for:: 08/01/18 Subjective:: Patient is comfortably in the bed communicating very well no acute events in the last 24 hours. He complained about a couple of episodes of heavy sweating last night but no fever. His any chest pains palpitations. 08/01/2018-patient found to be in rapid A. fib with heart rate of around 150 this morning he was transferred to [facility]. He was given a bolus of digoxin. Was started on Cardizem drip. We are going to titrate the Cardizem drip as per the protocol. Presently patient is asymptomatic. And is afebrile. Reason For Visit: AFIB,PNEUMONIA Physical Exam Vital Signs: Temp Pulse Resp BP Pulse Ox 97.3 F 103 H 20 128/89 H 93 08/01/18 11:44 08/01/18 11:48 08/01/18 11:44 08/01/18 11:48 08/01/18 11:44 Intake & Output 07/31/18 08/01/18 08/02/18 06:59 06:59 06:59 Intake Total 16 3365 785 Output Total 0 1100 Balance 16 2265 785 Weight 133.7 kg 133.7 kg General appearance: PRESENT: no acute distress Head exam: PRESENT: atraumatic Eye exam: PRESENT: PERRLA Mouth exam: PRESENT: moist Neck exam: ABSENT: carotid bruit, JVD, lymphadenopathy, thyromegaly Respiratory exam: PRESENT: decreased breath sounds, wheezes Cardiovascular exam: PRESENT: irregular rhythm, tachycardia GI/Abdominal exam: PRESENT: normal bowel sounds, soft. ABSENT: distended, guarding, mass, organolmegaly, rebound, tenderness Neurological exam: PRESENT: alert, awake, oriented to person, oriented to place, oriented to time, oriented to situation, CN II-XII grossly intact. ABSENT: motor sensory deficit Psychiatric exam: PRESENT: appropriate affect, normal mood. ABSENT: homicidal ideation, suicidal ideation Results Laboratory Results: 08/01/18 07:17 08/01/18 07:17 08/01/18 08/01/18 07:17 07:17 WBC 13.2 H RBC 5.11 Hgb 15.1 Hct 44.0 MCV 86 MCH 29.6 MCHC 34.3 RDW 14.2 H Plt Count 163 Seg Neutrophils % 90.7 H Lymphocytes % 5.1 L Monocytes % 4.1 Eosinophils % 0.0 Basophils % 0.1 Absolute Neutrophils 11.9 H Absolute Lymphocytes 0.7 Absolute Monocytes 0.5 Absolute Eosinophils 0.0 Absolute Basophils 0.0 Sodium 137.8 Potassium 4.1 Chloride 105 Carbon Dioxide 24 Anion Gap 9 BUN 27 H Creatinine 0.69 Est GFR ( Amer) > 60 Est GFR (Non-Af Amer) > 60 Glucose 164 H Calcium 8.3 L 07/30/18 07/30/18 07/30/18 16:00 19:00 23:12 CK-MB (CK-2) 0.76 1.42 Troponin I < 0.012 < 0.012 < 0.012 Impressions: Chest CT 07/30/18 00:00 IMPRESSION: Left lower lobe and minimal right middle lobe pneumonia. Chest X-Ray 07/30/18 16:09 IMPRESSION: Left lower lobe pneumonia. Assessment & Plan - Diagnosis (1) Left lower lobe pneumonia Qualifiers: Pneumonia type: due to unspecified organism Qualified Code(s): J18.1 - Lobar pneumonia, unspecified organism Is this a current diagnosis for this admission?: Yes Plan: 07/30/2018-plan is to place the patient in telemetry. Started on IV antibiotics Rocephin 1 g IV daily Zithromax 500 mg IV daily sputum cultures blood cultures sent already urine culture was requested. Done Xopenex nebulizations for wheezing. On oxygen 2 L via nasal cannula. 07/31/2018-chest CT was done yesterday shows left lower lobe pneumonia and right middle lobe pneumonia. Patient vital signs today temperature 97.6 blood pressure 130/90. Oxygen 97% on room air. WBC is 9.9. The cultures are pending. Patient is on IV Rocephin 1 g daily, Zithromax 500 mg IV daily. And is to continue the present management. Sputum culture is pending. 08/01/2018-patient has bilateral pneumonia. Cultures are pending. He is on IV Rocephin 1 g daily Zithromax 500 mg IV daily. Plan is to continue the present management. Sputum cultures are pending. (2) Atrial fibrillation with rapid ventricular response Is this a current diagnosis for this admission?: Yes Plan: 07/30/2018-for new onset atrial fibrillation requested for cardiology consult, echocardiogram was requested, discussed about blood thinners with the patient, started on heparin 5000 units subcu every 8 hours. Enzymes x3 was requested. Initial troponin was negative. 07/31/2018-patient was started on Cardizem drip yesterday. Heart rate in the 70s-80s. I discontinued Cardizem drip started on p.o. Cardizem 60 mg every 8 hours. I requested the nurse to call me if the heart rate goes up more than 120, if necessary we going to put her back on Cardizem drip. Echocardiogram was done last night and report is pending. Patient is on heparin 5000 units every 8 hours. On the cardiology recommendations I am going to put her on Eliquis or Xarelto. 2017-patient had a rapid A. fib this morning we started him on Cardizem drip. And he was transferred to [facility]. Linoleum Installer is on board. He got initial dose of IV digoxin. Symptomatic denies any chest pains. (3) Obesity (BMI 30-39.9) Is this a current diagnosis for this admission?: Yes Plan: 07/30/2018-diet exercise weight loss lifestyle modification was discussed with the patient. The consult was requested. 07/31/2018-patient's weight is 133.7 kg again diet exercise and weight loss was advised.. 08/01/2018-diet exercise weight loss was again advised. - Time Time Spent with patient: 15-24 minutes Medications reviewed and adjusted accordingly: Yes Anticipated discharge: Home
--- NOTE | 2018-08-01 12:54 | EKG REPORT ---
SEVERITY:- ABNORMAL ECG - ATRIAL FIBRILLATION, V-RATE [id number] : Confirmed by: Jamin Carvalho 01-Aug-2018 12:53:02
[2018-08-01] MEDS: AZITHROMYCIN 500 MG in DEXTROSE 5%-WATER 250 ML IV SCH (17:06)
--- NOTE | 2018-08-01 20:11 | Progress Note ---
Provider Note Provider Note: CARDIOLOGY PROGRESS NOTES by Dr. Deirdre Rodriguez on 08/01/2018. Subjective: The patient early this morning when he walked up to go to the bathroom heart rate 20-160, with the patient being in atrial fibrillation with rapid ventricular response. The patient was asymptomatic. His blood pressure was good. The the patient's IV fluids went to wear increased 250 mL/h for 1 L, and the also the patient was transferred so that the patient can be on a Cardizem drip at 10 mg/h. The patient denies any chest pain or discomfort. There is no PND orthopnea. But the patient states that when he lies down he does have cough. His sputum production is very scanty. He also has cough sitting up but this is less. Again the sputum production is very minimal and greenish in color. There is no chest pain or discomfort. There is no PND. There is no definite orthopnea. There is no leg edema. There is no dizziness o f, or syncope or near syncope. There is no TIA CVA symptoms. There is no leg edema. There is no ventricular arrhythmia seen on the monitor. 6 physical EXAMINATION: The patient is moderately to morbidly obese. He is in no acute distress. He is well-groomed. Selected Entries 08/01/18 11:44 Temperature 97.3 F Temperature Oral Source Pulse Rate 102 H Respiratory 20 Rate Blood Pressure 128/89 H Blood Pressure 102 Mean BP Location Right Arm BP Position Sitting O2 Sat by Pulse 93 Oximetry Oxygen Flow 3.00 Rate Oxygen Delivery Nasal Cannula Method HEAD: Is atraumatic normocephalic. EYES: His pupils are equal round regular reactive to light accommodation there is no conjunctival pallor there is no scleral icterus. ENT: Is negative. NECK: Supple. There is mild JVD still present. Carotids are equal there is no bruit. There is no lymphadenopathy. There is no goiter. LUNGS: Decreased breath sounds in the in the left lower lobe, and the right middle lobe, with dry crackles. No rales of CHF. There is no chest wall tenderness. S1-S2 is heard S1 is of variable intensity. There is no S3 gallop there is no S4 gallop. There is systolic murmur of mitral regurgitation and tricuspid regurgitation present. There is no murmur of aortic stenosis or aortic regurgitation. There is no rub. Abdomen: Is obese. Nontender. Bowel sounds are well heard. There is no hepatosplenomegaly. EXTREMITIES: Femorals are deep. Femorals are diminished. There is no femoral bruits. Leg pulses are diminished. There is mild pedal edema. There is no DVT or cellulitis. There is no calf tenderness. There is no cyanosis or clubbing. DENTAL ASSISTANT MEDICAL ASSISTANT: The patient is conscious awake alert oriented x3 with no focal deficits. PSYCHIATRIC: The patient judgment and insight are intact his affect is normal. 08/01/18 08/01/18 08/01/18 07:17 07:17 07:17 WBC 13.2 H RBC 5.11 Hgb 15.1 Hct 44.0 MCV 86 MCH 29.6 MCHC 34.3 RDW 14.2 H Plt Count 163 Seg Neutrophils % 90.7 H Lymphocytes % 5.1 L Sodium 137.8 Potassium 4.1 Chloride 105 Carbon Dioxide 24 Anion Gap 9 BUN 27 H Creatinine 0.69 Est GFR (Non-Af Amer) > 60 Glucose 164 H Calcium 8.3 L NT-Pro-B Natriuret Pep 1060 H EKG: Shows atrial fibrillation with fast ventricular response. IMPRESSION/RECOMMENDATION: 1. New onset atrial fibrillation with rapid ventricular response: At present the patient is off the IV Cardizem drip. We will change the patient's Cardizem to metoprolol. 2. Pneumonia left lower lobe, and right middle lobe, continue antibiotics. 3. Obesity. 4. The patient's corrected chads vasc 2 score is actually 0. Hence would recommend that the patient be on 325 milligrams of aspirin. Later would recommend the patient have a IV Lexiscan Cardiolite stress test. Note medications reviewed, and medication adjusted. Management plan discussed with the attending physician on the case discussed with the patient patient's about the patient's clinical condition. Note medical decision making is of high complexity. 60 minutes spent on this patient, with more than 50% of time spent in direct patient care. We will follow with you.
[2018-08-01] MEDS: ZOLPIDEM TARTRATE 5 MG TABLET PO PRN (22:39)
[2018-08-02 04:45] LABS: ABSOLUTE LYMPHOCYTES (AUTO) 0.9 10^3/uL (0.5-4.7); ABSOLUTE MONOCYTES (AUTO) 0.5 10^3/uL (0.1-1.4); ABSOLUTE NEUT (AUTO) 12.8 10^3/uL (1.7-8.2); BASOPHILS % (AUTO) 0.1 % (0-2); HEMATOCRIT 48.1 % (37.9-51.0); HEMOGLOBIN 16.1 g/dL (13.5-17.0); LYMPHOCYTES % (AUTO) 6.4 % (13-45); MEAN CORPUSCULAR HEMOGLOBIN 29.4 pg (27.0-33.4); MEAN CORPUSCULAR HGB CONC 33.6 g/dL (32.0-36.0); MEAN CORPUSCULAR VOLUME 88 fl (80-97); MONOCYTES % (AUTO) 3.4 % (3-13); PLATELET COUNT 179 10^3/uL (150-450); RED BLOOD COUNT 5.49 10^6/uL (4.35-5.55); RED CELL DISTRIBUTION WIDTH 14.4 % (11.5-14.0); SEGMENTED NEUTROPHILS % (AUTO) 90.1 % (42-78); TOTAL CELLS COUNTED % (AUTO) 100 %; WHITE BLOOD COUNT 14.2 10^3/uL (4.0-10.5)
[2018-08-02 04:51] LABS: INTERNATIONAL RATION (INR) 1.01; PROTHROMBIN TIME 13.8 SEC (11.4-15.4)
[2018-08-02 05:06] LABS: ANION GAP 9 (5-19); BLOOD UREA NITROGEN 31 mg/dL (7-20); CALCIUM 8.5 mg/dL (8.4-10.2); CARBON DIOXIDE 26 mmol/L (22-30); CHLORIDE 105 mmol/L (98-107); GLUCOSE 164 mg/dL (75-110); POTASSIUM 4.2 mmol/L (3.6-5.0); SODIUM 139.8 mmol/L (137-145)
[2018-08-02] MEDS: HEPARIN SOD (PORCINE) 5,000 UNIT/ML 1 ML SYRINGE SUBCUT SCH ×2 (05:33→13:25)
[2018-08-02] MEDS: METHYLPREDNISOLONE INJ 40 MG/1 ML SDV IV SCH (05:33)
--- NOTE | 2018-08-02 08:38 | PDOC PROGRESS REPORT ---
Subjective Progress Note for:: 08/02/18 Subjective:: Patient is comfortably in the bed communicating very well no acute events in the last 24 hours. He complained about a couple of episodes of heavy sweating last night but no fever. His any chest pains palpitations. 08/01/2018-patient found to be in rapid A. fib with heart rate of around 150 this morning he was transferred to [facility]. He was given a bolus of digoxin. Was started on Cardizem drip. We are going to titrate the Cardizem drip as per the protocol. Presently patient is asymptomatic. And is afebrile. 08/02/2018-patient still in A. fib but rate controlled, we are going to stop Cardizem drip for now and to give 75 mg of metoprolol now and 75 mg p.o. twice daily. Patient is asymptomatic. No complaints no concerns. Afebrile. No complaints of shortness of breath on laying flat. Reason For Visit: AFIB,PNEUMONIA Physical Exam Vital Signs: Temp Pulse Resp BP Pulse Ox 97.5 F 79 18 124/82 93 08/02/18 08:16 08/02/18 08:16 08/02/18 08:16 08/02/18 08:16 08/02/18 08:16 Intake & Output 08/01/18 08/02/18 08/03/18 06:59 06:59 06:59 Intake Total 3365 2385 Output Total 1100 925 Balance 2265 1460 Weight 133.7 kg 135.2 kg General appearance: PRESENT: no acute distress Head exam: PRESENT: atraumatic Eye exam: PRESENT: PERRLA Mouth exam: PRESENT: moist Neck exam: ABSENT: carotid bruit, JVD, lymphadenopathy, thyromegaly Respiratory exam: PRESENT: wheezes Cardiovascular exam: PRESENT: irregular rhythm, other - Rate controlled GI/Abdominal exam: PRESENT: soft, other - Obese abdomen. ABSENT: tenderness Neurological exam: PRESENT: alert, awake, oriented to person, oriented to place, oriented to time, oriented to situation, CN II-XII grossly intact. ABSENT: motor sensory deficit Psychiatric exam: PRESENT: appropriate affect, normal mood. ABSENT: homicidal ideation, suicidal ideation Results Laboratory Results: 08/02/18 04:16 08/02/18 04:16 08/02/18 08/02/18 04:16 04:16 WBC 14.2 H RBC 5.49 Hgb 16.1 Hct 48.1 MCV 88 MCH 29.4 MCHC 33.6 RDW 14.4 H Plt Count 179 Seg Neutrophils % 90.1 H Lymphocytes % 6.4 L Monocytes % 3.4 Eosinophils % 0.0 Basophils % 0.1 Absolute Neutrophils 12.8 H Absolute Lymphocytes 0.9 Absolute Monocytes 0.5 Absolute Eosinophils 0.0 Absolute Basophils 0.0 Sodium 139.8 Potassium 4.2 Chloride 105 Carbon Dioxide 26 Anion Gap 9 BUN 31 H Creatinine 0.69 Est GFR ( Amer) > 60 Est GFR (Non-Af Amer) > 60 Glucose 164 H Calcium 8.5 07/30/18 07/30/18 07/30/18 16:00 19:00 23:12 CK-MB (CK-2) 0.76 1.42 Troponin I < 0.012 < 0.012 < 0.012 NT-Pro-B Natriuret Pep 08/01/18 07:17 CK-MB (CK-2) Troponin I NT-Pro-B Natriuret Pep 1060 H Impressions: Chest CT 07/30/18 00:00 IMPRESSION: Left lower lobe and minimal right middle lobe pneumonia. Chest X-Ray 07/30/18 16:09 IMPRESSION: Left lower lobe pneumonia. Assessment & Plan - Diagnosis (1) Left lower lobe pneumonia Qualifiers: Pneumonia type: due to unspecified organism Qualified Code(s): J18.1 - Lobar pneumonia, unspecified organism Is this a current diagnosis for this admission?: Yes Plan: 07/30/2018-plan is to place the patient in telemetry. Started on IV antibiotics Rocephin 1 g IV daily Zithromax 500 mg IV daily sputum cultures blood cultures sent already urine culture was requested. Done Xopenex nebulizations for wheezing. On oxygen 2 L via nasal cannula. 07/31/2018-chest CT was done yesterday shows left lower lobe pneumonia and right middle lobe pneumonia. Patient vital signs today temperature 97.6 blood pressure 130/90. Oxygen 97% on room air. WBC is 9.9. The cultures are pending. Patient is on IV Rocephin 1 g daily, Zithromax 500 mg IV daily. And is to continue the present management. Sputum culture is pending. 08/01/2018-patient has bilateral pneumonia. Cultures are pending. He is on IV Rocephin 1 g daily Zithromax 500 mg IV daily. Plan is to continue the present management. Sputum cultures are pending. 08/02/2018 patient has a left lower lobe pneumonia and right middle lobe pneumonia. He is on IV Rocephin, IV Zithromax. Sputum cultures are pending blood cultures are negative so far. Patient is afebrile. Plan is to continue the present management. Patient is on oxygen 2 L nasal cannula. (2) Atrial fibrillation with rapid ventricular response Is this a current diagnosis for this admission?: Yes Plan: 07/30/2018-for new onset atrial fibrillation requested for cardiology consult, echocardiogram was requested, discussed about blood thinners with the patient, started on heparin 5000 units subcu every 8 hours. Enzymes x3 was requested. Initial troponin was negative. 07/31/2018-patient was started on Cardizem drip yesterday. Heart rate in the 70s-80s. I discontinued Cardizem drip started on p.o. Cardizem 60 mg every 8 hours. I requested the nurse to call me if the heart rate goes up more than 120, if necessary we going to put her back on Cardizem drip. Echocardiogram was done last night and report is pending. Patient is on heparin 5000 units every 8 hours. On the cardiology recommendations I am going to put her on Eliquis or Xarelto. 2017-patient had a rapid A. fib this morning we started him on Cardizem drip. And he was transferred to [facility]. Physical Science Teacher is on board. He got initial dose of IV digoxin. Symptomatic denies any chest pains. 08/02/2018-patient still in atrial fib but rate controlled heart rate is between 70-80. We could stop the cardiology drip for now and start on metoprolol 75 mg 1 dose now then twice a day twice daily. Echocardiogram report is pending patient was started on aspirin 3.5 mg p.o. daily patient is also on a heparin 50 00 units subcu every 8 hours. She is asymptomatic. Check for a TSH and BNP is 1060. (3) Obesity (BMI 30-39.9) Is this a current diagnosis for this admission?: Yes Plan: 07/30/2018-diet exercise weight loss lifestyle modification was discussed with the patient. The consult was requested. 07/31/2018-patient's weight is 133.7 kg again diet exercise and weight loss was advised.. 08/01/2018-diet exercise weight loss was again advised. 08/02/2018-patient's BMI is more than 40, he has history of lap band surgery. Diet exercise weight loss, lifestyle modifications discussed with the patient. - Time Time Spent with patient: 15-24 minutes Medications reviewed and adjusted accordingly: Yes Anticipated discharge: Home
[2018-08-02] MEDS: DOCUSATE SODIUM 100 MG/10 ML UDC PO SCH (09:37)
[2018-08-02] MEDS: FAMOTIDINE 20 MG TABLET PO SCH ×2 (09:46→21:35)
[2018-08-02] MEDS: CEFTRIAXONE SODIUM 1,000 MG in DEXTROSE 5%-WATER 50 ML IV SCH (09:47)
[2018-08-02] MEDS ORDERED: METOPROLOL SUCCINATE 50 MG TAB.SR.24H PO SCH (10:00)
[2018-08-02] MEDS ORDERED: ASPIRIN 325 MG TABLET PO SCH (10:00)
[2018-08-02] MEDS ORDERED: METOPROLOL SUCCINATE 50 MG TAB.SR.24H PO ONE (10:00)
[2018-08-02] MEDS: APIXABAN 5 MG TABLET PO SCH (17:48)
[2018-08-02] MEDS: AZITHROMYCIN 500 MG in DEXTROSE 5%-WATER 250 ML IV SCH (18:06)
--- NOTE | 2018-08-02 20:26 | Progress Note ---
Provider Note Provider Note: CARDIOLOGY PROGRESS NOTES by Dr. Deirdre Rodriguez on 08/02/2018. SUBJECTIVE: The patient still has some paroxysms of cough, without any major sputum production. He denies any chest pain or discomfort. He continues to be in atrial fibrillation. At rest his ventricular response is controlled. But when he ambulates his heart rate goes up into the 140s. In view of this we will increase the patient's metoprolol as tolerated by the patient's heart rate and blood pressure. The patient denies any wheezing. There is no hemoptysis. There is no pleuritic chest pain. There is no PND, orthopnea or leg edema. There is no TIA CVA symptoms. SUBJECTIVE: The patient is moderate to morbidly obese. He is well-groomed. He is in no acute distress. Selected Entries 08/02/18 08:16 Temperature 97.5 F Temperature Oral Source Pulse Rate 79 Respiratory 18 Rate Blood Pressure 124/82 Blood Pressure 96 Mean BP Location Right Arm BP Position Sitting O2 Sat by Pulse 93 Oximetry Oxygen Flow 2.00 Rate Oxygen Delivery Nasal Cannula Method HEAD: Is atraumatic normocephalic. EYES: His pupils are equal round regular reactive to light accommodation there is no conjunctival pallor there is no scleral icterus. ENT: Is negative. NECK: Supple. There is mild JVD still present. Carotids are equal there is no bruit. There is no lymphadenopathy. There is no goiter. LUNGS: Decreased breath sounds in the in the left lower lobe, and the right middle lobe, with dry crackles. There is scattered rhonchi, but no wheezing. No rales of CHF. There is no chest wall tenderness. S1-S2 is heard S1 is of variable intensity. There is no S3 gallop there is no S4 gallop. There is systolic murmur of mitral regurgitation and tricuspid regurgitation present. There is no murmur of aortic stenosis or aortic regurgitation. There is no rub. Abdomen: Is obese. Nontender. Bowel sounds are well heard. There is no hepatosplenomegaly. EXTREMITIES: Femorals are deep. Femorals are diminished. There is no femoral bruits. Leg pulses are diminished. There is trace pedal edema. There is no DVT or cellulitis. There is no calf tenderness. There is no cyanosis or clubbing. HAT SPRAYER: The patient is conscious awake alert oriented x3 with no focal deficits. PSYCHIATRIC: The patient judgment and insight are intact his affect is normal. 07/30/18 08/01/18 08/02/18 17:04 07:17 04:16 WBC 14.2 H RBC 5.49 Hgb 16.1 Hct 48.1 MCV 88 MCH 29.4 MCHC 33.6 RDW 14.4 H Plt Count 179 PT INR Sodium Potassium Chloride Carbon Dioxide Anion Gap BUN Creatinine Est GFR (Non-Af Amer) Glucose Calcium NT-Pro-B Natriuret Pep 1060 H Influenza A (Rapid) NEGATIVE Influenza B (Rapid) NEGATIVE 08/02/18 08/02/18 04:16 04:16 WBC RBC Hgb Hct MCV MCH MCHC RDW Plt Count PT 13.8 INR 1.01 Sodium 139.8 Potassium 4.2 Chloride 105 Carbon Dioxide 26 Anion Gap 9 BUN 31 H Creatinine 0.69 Est GFR (Non-Af Amer) > 60 Glucose 164 H Calcium 8.5 NT-Pro-B Natriuret Pep Influenza A (Rapid) Influenza B (Rapid) 1. Persistent atrial fibrillation with controlled ventricular response, at rest: In view of the patient's heart rate going up with exertion, will increase the patient's metoprolol to 75 mg p.o. every 12 hours, and later 100 mg p.o. every 12 hours as tolerated. The new strategy now is since the patient continues to be in atrial fibrillation, and may require cardioversion later on, would place the patient on Eliquis 5 mg p.o. twice daily as a short term anticoagulation therapy. If the patient does not convert to sinus rhythm, will bring the patient back in 4-6 weeks and chemically/electrically cardiovert him, and have him continue Eliquis for another 4-6 weeks post cardioversion, if clinically there is no further recurrence of atrial fibrillation after cardioversion. This has been discussed with the patient patient's . And also the attending physician on the case. Note the bleeding complications of Eliquis has been discussed with patient patient's . Also the patient's drinks a lot of coffee. I have advised him to switch to decaffeinated drinks. 2. Pneumonia left lower lobe, and right middle lobe, continue antibiotics.. Clinically seems to be getting better. We will repeat the patient's chest x-ray in a.m. 3. Obesity. Later would recommend the patient have a IV Lexiscan Cardiolite stress test. This can be done as an outpatient. Note medications reviewed, and medication adjusted. Management plan discussed with the attending physician on the case discussed with the patient patient's about the patient's clinical condition. Note medical decision making is of high complexity. 40 minutes spent on this patient, with more than 50% of time spent in direct patient care. We will follow with you.
[2018-08-02] MEDS: METOPROLOL SUCCINATE 50 MG TAB.SR.24H PO SCH (21:35)
[2018-08-03] MEDS: ZOLPIDEM TARTRATE 5 MG TABLET PO PRN (00:05)
[2018-08-03 06:04] LABS: ABSOLUTE LYMPHOCYTES (AUTO) 1.3 10^3/uL (0.5-4.7); ABSOLUTE MONOCYTES (AUTO) 0.8 10^3/uL (0.1-1.4); ABSOLUTE NEUT (AUTO) 7.7 10^3/uL (1.7-8.2); BASOPHILS % (AUTO) 0.1 % (0-2); HEMATOCRIT 42.8 % (37.9-51.0); HEMOGLOBIN 14.6 g/dL (13.5-17.0); LYMPHOCYTES % (AUTO) 13.5 % (13-45); MEAN CORPUSCULAR HEMOGLOBIN 29.5 pg (27.0-33.4); MEAN CORPUSCULAR HGB CONC 34.1 g/dL (32.0-36.0); MEAN CORPUSCULAR VOLUME 87 fl (80-97); MONOCYTES % (AUTO) 8.2 % (3-13); PLATELET COUNT 146 10^3/uL (150-450); RED BLOOD COUNT 4.95 10^6/uL (4.35-5.55); RED CELL DISTRIBUTION WIDTH 14.6 % (11.5-14.0); SEGMENTED NEUTROPHILS % (AUTO) 78.2 % (42-78); TOTAL CELLS COUNTED % (AUTO) 100 %; WHITE BLOOD COUNT 9.8 10^3/uL (4.0-10.5)
[2018-08-03 06:32] LABS: ALANINE AMINOTRANSFERASE 31 U/L (21-72); ALBUMIN 2.9 g/dL (3.5-5.0); ALKALINE PHOSPHATASE 53 U/L (38-126); ANION GAP 5 (5-19); ASPARTATE AMINO TRANSFERASE 35 U/L (17-59); BILIRUBIN,DIRECT 0.2 mg/dL (0.0-0.4); BILIRUBIN,TOTAL 0.7 mg/dL (0.2-1.3); BLOOD UREA NITROGEN 31 mg/dL (7-20); CALCIUM 7.9 mg/dL (8.4-10.2); CARBON DIOXIDE 29 mmol/L (22-30); CHLORIDE 106 mmol/L (98-107); CHOLESTEROL 147.17 mg/dL (0-200); GLUCOSE 122 mg/dL (75-110); POTASSIUM 4.2 mmol/L (3.6-5.0); SODIUM 140.1 mmol/L (137-145); TOTAL PROTEIN 5.7 g/dL (6.3-8.2); TRIGLYCERIDES 135 mg/dL (<150)
[2018-08-03 06:43] LABS: DIRECT LDL 108 mg/dL (<100)
[2018-08-03 06:47] LABS: FREE T3 2.63 pg/mL (2.77-5.27); FREE T4 (FREE THYROXINE) 1.04 ng/dL (0.78-2.19)
--- NOTE | 2018-08-03 06:51 | EKG REPORT ---
SEVERITY:- ABNORMAL ECG - ATRIAL FIBRILLATION, V-RATE 57-77 : Confirmed by: Jamin Carvalho 03-Aug-2018 06:51:14
[2018-08-03 07:01] LABS: THYROID STIMULATING HORMONE 2.89 uIU/mL (0.47-4.68)
--- NOTE | 2018-08-03 08:55 | PDOC PROGRESS REPORT ---
Subjective Progress Note for:: 08/03/18 Subjective:: Patient is comfortably in the bed communicating very well no acute events in the last 24 hours. He complained about a couple of episodes of heavy sweating last night but no fever. His any chest pains palpitations. 08/01/2018-patient found to be in rapid A. fib with heart rate of around 150 this morning he was transferred to [facility]. He was given a bolus of digoxin. Was started on Cardizem drip. We are going to titrate the Cardizem drip as per the protocol. Presently patient is asymptomatic. And is afebrile. 08/02/2018-patient still in A. fib but rate controlled, we are going to stop Cardizem drip for now and to give 75 mg of metoprolol now and 75 mg p.o. twice daily. Patient is asymptomatic. No complaints no concerns. Afebrile. No complaints of shortness of breath on laying flat. 08/03/2018-patient is still in atrial fib with ventricular response heart rate is 57. He is on Eliquis 5 mg p.o. twice daily. And he is also on metoprolol 100 mg p.o. twice a day. Patient is asymptomatic. Afebrile. Pulse ox is 96% on 1.5 Lts. Reason For Visit: AFIB,PNEUMONIA Physical Exam Vital Signs: Temp Pulse Resp BP Pulse Ox 97.3 F 60 16 115/71 96 08/03/18 04:06 08/03/18 07:00 08/03/18 04:06 08/03/18 04:06 08/03/18 04:06 Intake & Output 08/02/18 08/03/18 08/04/18 06:59 06:59 06:59 Intake Total 2385 2823 Output Total 925 950 Balance 1460 1873 Weight 135.2 kg 135.8 kg General appearance: PRESENT: no acute distress Head exam: PRESENT: atraumatic Eye exam: PRESENT: PERRLA Mouth exam: PRESENT: moist Neck exam: ABSENT: carotid bruit, JVD, lymphadenopathy, thyromegaly Respiratory exam: PRESENT: decreased breath sounds, wheezes Cardiovascular exam: PRESENT: irregular rhythm GI/Abdominal exam: PRESENT: normal bowel sounds, soft. ABSENT: distended, guarding, mass, organolmegaly, rebound, tenderness Neurological exam: PRESENT: alert, awake, oriented to person, oriented to place, oriented to time, oriented to situation, CN II-XII grossly intact. ABSENT: motor sensory deficit Psychiatric exam: PRESENT: appropriate affect, normal mood. ABSENT: homicidal i deation, suicidal ideation Results Laboratory Results: 08/03/18 05:22 08/03/18 05:22 08/03/18 08/03/18 08/03/18 05:22 05:22 05:22 WBC 9.8 RBC 4.95 Hgb 14.6 Hct 42.8 MCV 87 MCH 29.5 MCHC 34.1 RDW 14.6 H Plt Count 146 L Seg Neutrophils % 78.2 H Lymphocytes % 13.5 Monocytes % 8.2 Eosinophils % 0.0 Basophils % 0.1 Absolute Neutrophils 7.7 Absolute Lymphocytes 1.3 Absolute Monocytes 0.8 Absolute Eosinophils 0.0 Absolute Basophils 0.0 Sodium 140.1 Potassium 4.2 Chloride 106 Carbon Dioxide 29 Anion Gap 5 BUN 31 H Creatinine 0.70 Est GFR ( Amer) > 60 Est GFR (Non-Af Amer) > 60 Glucose 122 H Calcium 7.9 L Magnesium 2.5 H Total Bilirubin 0.7 AST 35 ALT 31 Alkaline Phosphatase 53 Total Protein 5.7 L Albumin 2.9 L Triglycerides 135 Cholesterol 147.17 LDL Cholesterol Direct 108 H VLDL Cholesterol 27.0 HDL Cholesterol 26 L TSH 2.89 Free T4 1.04 Free T3 pg/mL 2.63 L 07/31/18 10:13 Sputum Gram Stain - Final 07/31/18 10:13 Sputum Sputum Culture - Final NORMAL GORAN 07/30/18 07/30/18 07/30/18 16:00 19:00 23:12 CK-MB (CK-2) 0.76 1.42 Troponin I < 0.012 < 0.012 < 0.012 NT-Pro-B Natriuret Pep 08/01/18 07:17 CK-MB (CK-2) Troponin I NT-Pro-B Natriuret Pep 1060 H Impressions: Chest CT 07/30/18 00:00 IMPRESSION: Left lower lobe and minimal right middle lobe pneumonia. Chest X-Ray 07/30/18 16:09 IMPRESSION: Left lower lobe pneumonia. Assessment & Plan - Diagnosis (1) Left lower lobe pneumonia Qualifiers: Pneumonia type: due to unspecified organism Qualified Code(s): J18.1 - Lobar pneumonia, unspecified organism Is this a current diagnosis for this admission?: Yes Plan: 07/30/2018-plan is to place the patient in telemetry. Started on IV antibiotics Rocephin 1 g IV daily Zithromax 500 mg IV daily sputum cultures blood cultures sent already urine culture was requested. Done Xopenex nebulizations for wheezing. On oxygen 2 L via nasal cannula. 07/31/2018-chest CT was done yesterday shows left lower lobe pneumonia and right middle lobe pneumonia. Patient vital signs today temperature 97.6 blood pressure 130/90. Oxygen 97% on room air. WBC is 9.9. The cultures are pen ding. Patient is on IV Rocephin 1 g daily, Zithromax 500 mg IV daily. And is to continue the present management. Sputum culture is pending. 08/01/2018-patient has bilateral pneumonia. Cultures are pending. He is on IV Rocephin 1 g daily Zithromax 500 mg IV daily. Plan is to continue the present management. Sputum cultures are pending. 08/02/2018 patient has a left lower lobe pneumonia and right middle lobe pneumonia. He is on IV Rocephin, IV Zithromax. Sputum cultures are pending blo od cultures are negative so far. Patient is afebrile. Plan is to continue the present management. Patient is on oxygen 2 L nasal cannula. 08/03/2018-patient has bilateral pneumonia. Sputum culture was negative. Blood cultures are negative. Patient is on IV Rocephin and Zithromax. Pulse ox is 96% on 1/2 L. Plan is to continue the present management plan to discharge patient tomorrow probably on p.o. antibiotics. (2) Atrial fibrillation with rapid ventricular response Is this a current diagnosis for this admission?: Yes Plan: 07/30/2018-for new onset atrial fibrillation requested for cardiology consult, echocardiogram was requested, discussed about blood thinners with the patient, started on heparin 5000 units subcu every 8 hours. Enzymes x3 was requested. Initial troponin was negative. 07/31/2018-patient was started on Cardizem drip yesterday. Heart rate in the 70s-80s. I discontinued Cardizem drip started on p.o. Cardizem 60 mg every 8 hours. I requested the nurse to call me if the heart rate goes up more than 120, if necessary we going to put her back on Cardizem drip. Echocardiogram was done last night and report is pending. Patient is on heparin 5000 units every 8 hours. On the cardiology recommendations I am going to put her on Eliquis or Xarelto. 2017-patient had a rapid A. fib this morning we started him on Cardizem drip. And he was transferred to [facility]. Manufacturing Engineer Chief is on board. He got initial dose of IV digoxin. Symptomatic denies any chest pains. 08/02/2018-patient still in atrial fib but rate controlled heart rate is between 70-80. We could stop the cardiology drip for now and start on metoprolol 75 mg 1 dose now then twice a day twice daily. Echocardiogram report is pending patient was started on aspirin 3.5 mg p.o. daily patient is also on a heparin 5000 units subcu every 8 hours. She is asymptomatic. Check for a TSH and BNP is 1060. 08/03/2018-patient heart rate is 57 still atrial fib with activity heart rate is going back is on metoprolol 100 mg p.o. twice a day, Eliquis 5 mg p.o. twice a day. I reviewed the clinical veterinarian note the plan is to do the cardioversion in the future if he still in A. fib. Meantime will continue Eliquis. (3) Obesity (BMI 30-39.9) Is this a current diagnosis for this admission?: Yes Plan: 07/30/2018-diet exercise weight loss lifestyle modification was discussed with the patient. The consult was requested. 07/31/2018-patient's weight is 133.7 kg again diet exercise and weight loss was advised.. 08/01/2018-diet exercise weight loss was again advised. 08/02/2018-patient's BMI is more than 40, he has history of lap band surgery. Diet exercise weight loss, lifestyle modifications discussed with the patient. 08/03/2018-obesity patient is BMI is more than 40 he had a history of lap band surgery. Diet exercise weight loss was advised. Dietary consult was requested. (4) Diabetes 1.5, managed as type 2 Is this a current diagnosis for this admission?: Yes Plan: Patient has history of diabetes mellitus- according to him after land band surgery he lost a lot of weight and he is not any diabetic medications anymore. Latest blood sugar is 122. - Time Time Spent with patient: 15-24 minutes Medications reviewed and adjusted accordingly: Yes Anticipated discharge: Home
[2018-08-03] MEDS: DOCUSATE SODIUM 100 MG/10 ML UDC PO SCH (09:12)
[2018-08-03] MEDS: CEFTRIAXONE SODIUM 1,000 MG in DEXTROSE 5%-WATER 50 ML IV SCH (09:56)
[2018-08-03] MEDS: FAMOTIDINE 20 MG TABLET PO SCH ×2 (10:03→21:11)
[2018-08-03] MEDS: METOPROLOL SUCCINATE 50 MG TAB.SR.24H PO SCH ×2 (10:03→21:11)
[2018-08-03] MEDS: APIXABAN 5 MG TABLET PO SCH ×2 (10:05→17:59)
[2018-08-03] MEDS: AZITHROMYCIN 500 MG in DEXTROSE 5%-WATER 250 ML IV SCH (18:00)
--- NOTE | 2018-08-03 22:01 | Progress Note ---
Provider Note Provider Note: CARDIOLOGY PROGRESS NOTES by Dr. Deirdre Rodriguez on 08/03/2018. SUBJECTIVE: The patient continues to be in atrial fibrillation. Last night his heart rate dipped down into the high 30s, with the patient being asymptomatic, with a stable blood pressure. With ambulation the heart rate transiently goes up to 140, and comes back down into the 90s. The patient does have shortness of breath with more than mild exertion. He is has spells of coughing, but is unable to bring up any sputum. He denies any PND orthopnea. He has no chest pain or discomfort. There is no TIA CVA symptoms. There is no bleeding on Eliquis. There is no pedal edema. The patient's thyroid functions are normal. Later would get a hemoglobin A1c off steroids. PHYSICAL EXAMINATION: The patient is moderate to morbidly obese. He is well- groomed. He is in no acute distress. Selected Entries 08/03/18 11:13 Temperature 97.2 F Temperature Oral Source Pulse Rate 70 Respiratory 20 Rate Blood Pressure 126/93 H Blood Pressure 104 Mean BP Location Left Arm BP Position Sitting O2 Sat by Pulse 96 Oximetry Oxygen Delivery Room Air Method HEAD: Is atraumatic normocephalic. EYES: His pupils are equal round regular reactive to light accommodation there is no conjunctival pallor there is no scleral icterus. ENT: Is negative. NECK: Supple. There is mild JVD still present. Carotids are equal there is no bruit. There is no lymphadenopathy. There is no goiter. LUNGS: Decreased breath sounds in the in the left lower lobe, and the right middle lobe, with dry crackles. There is scattered rhonchi, but no wheezing. No rales of CHF. There is no chest wall tenderness. S1-S2 is heard S1 is of variable intensity. There is no S3 gallop there is no S4 gallop. There is systolic murmur of mitral regurgitation and tricuspid regurgitation present. There is no murmur of aortic stenosis or aortic regurgitation. There is no rub. Abdomen: Is obese. Nontender. Bowel sounds are well heard. There is no hepatosplenomegaly. EXTREMITIES: Femorals are deep. Femorals are diminished. There is no femoral bruits. Leg pulses are diminished. There is trace pedal edema. There is no DVT or cellulitis. There is no calf tenderness. There is no cyanosis or clubbing. 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 PSYCHIATRIC: The patient judgment and insight are intact his affect is normal. 08/03/18 08/03/18 08/03/18 05:22 05:22 05:22 WBC 9.8 RBC 4.95 Hgb 14.6 Hct 42.8 MCV 87 MCH 29.5 MCHC 34.1 RDW 14.6 H Plt Count 146 L Seg Neutrophils % 78.2 H Lymphocytes % 13.5 Monocytes % 8.2 Sodium 140.1 Potassium 4.2 Chloride 106 Carbon Dioxide 29 Anion Gap 5 BUN 31 H Creatinine 0.70 Est GFR (Non-Af Amer) > 60 Glucose 122 H Calcium 7.9 L Magnesium 2.5 H Total Bilirubin 0.7 Direct Bilirubin 0.2 Neonat Total Bilirubin Not Reportable Neonat Direct Bilirubin Not Reportable Neonat Indirect Bili Not Reportable AST 35 ALT 31 Alkaline Phosphatase 53 Total Protein 5.7 L Albumin 2.9 L Triglycerides 135 Cholesterol 147.17 LDL Cholesterol Direct 108 H VLDL Cholesterol 27.0 HDL Cholesterol 26 L TSH 2.89 Free T4 1.04 Free T3 pg/mL 2.63 L Patient's EKG shows atrial fibrillation with controlled ventricular response. IMPRESSION/RECOMMENDATION: 1. Persistent atrial fibrillation with controlled ventricular response, at rest: Does transiently increased to 140s when the patient ambulates. This will improve with improvement of the patient's pneumonia. The plan is to continue the patient on betablocker,digoxin , and Eliquis. 2. Pneumonia left lower lobe, and right middle lobe, continue antibiotics.. Clinically seems to be getting better. We will repeat the patient's chest x-ray in a.m. 3.Hyperlipidemia: will start statins after discussions with patient and . 4.with the patient's bradycardia at night, suspect sleep apnea. We will get the nocturnal oximetry readings to see if the patient does desaturate into sleep. Anyhow the patient would be recommended to have a outpatient sleep study to be absolutely sure he does not have obstructive sleep apnea. 5.Obesity. Later would recommend the patient have a IV Lexiscan Cardiolite stress test. This can be done as an outpatient. Medications reviewed. Management plan discussed with the attending physicians on the case. Medical decision making is still of high complexity. 40 minutes spent on this patient with more than 50% of time spent in direct patient care. We will follow with you.
[2018-08-04 05:07] LABS: HEMATOCRIT 44.7 % (37.9-51.0); MEAN CORPUSCULAR HEMOGLOBIN 29.1 pg (27.0-33.4); MEAN CORPUSCULAR HGB CONC 33.5 g/dL (32.0-36.0); MEAN CORPUSCULAR VOLUME 87 fl (80-97); PLATELET COUNT 149 10^3/uL (150-450); RED BLOOD COUNT 5.14 10^6/uL (4.35-5.55); RED CELL DISTRIBUTION WIDTH 14.1 % (11.5-14.0); WHITE BLOOD COUNT 7.4 10^3/uL (4.0-10.5)
[2018-08-04 05:31] LABS: ALANINE AMINOTRANSFERASE 45 U/L (21-72); ALBUMIN 2.7 g/dL (3.5-5.0); ALKALINE PHOSPHATASE 52 U/L (38-126); ANION GAP 6 (5-19); ASPARTATE AMINO TRANSFERASE 38 U/L (17-59); BILIRUBIN,DIRECT 0.2 mg/dL (0.0-0.4); BILIRUBIN,TOTAL 0.5 mg/dL (0.2-1.3); BLOOD UREA NITROGEN 28 mg/dL (7-20); CALCIUM 7.6 mg/dL (8.4-10.2); CARBON DIOXIDE 30 mmol/L (22-30); CHLORIDE 102 mmol/L (98-107); GLUCOSE 91 mg/dL (75-110); POTASSIUM 3.9 mmol/L (3.6-5.0); SODIUM 138.3 mmol/L (137-145); TOTAL PROTEIN 5.3 g/dL (6.3-8.2)
[2018-08-04 06:38] LABS: ABSOLUTE LYMPHOCYTES# (MANUAL) 2.7 10^3/uL (0.5-4.7); ABSOLUTE MONOCYTES # (MANUAL) 0.4 10^3/uL (0.1-1.4); ABSOLUTE NEUTROPHILS# (MANUAL) 4.3 10^3/uL (1.7-8.2); BASOPHILS % (MANUAL) 0 % (0-2); EOSINOPHILS % (MANUAL) 0 % (0-6); LYMPHOCYTES % (MANUAL) 37 % (13-45); MONOCYTES % (MANUAL) 5 % (3-13); SEGMENTED NEUTROPHILS % (MAN) 58 % (42-78); TOTAL CELLS COUNTED 100
[2018-08-04 06:40] LABS: OVALOCYTES SLIGHT; POIKILOCYTOSIS SLIGHT
[2018-08-04 06:41] LABS: PLATELET COMMENT ADEQUATE; TEAR DROP CELLS SLIGHT
[2018-08-04] MEDS: CEFTRIAXONE SODIUM 1,000 MG in DEXTROSE 5%-WATER 50 ML IV SCH (10:32)
[2018-08-04] MEDS: METOPROLOL SUCCINATE 50 MG TAB.SR.24H PO SCH (10:32)
[2018-08-04] MEDS: FAMOTIDINE 20 MG TABLET PO SCH (10:32)
[2018-08-04] MEDS: APIXABAN 5 MG TABLET PO SCH (10:32)
[2018-08-04] MEDS: DOCUSATE SODIUM 100 MG/10 ML UDC PO SCH (10:33)
--- NOTE | 2018-08-04 13:08 | XCELERA REPORT ---
[address] [address] Transthoracic Echocardiogram Report Name: SHELBY CASTILLO Age: 57 yrs Gender: Male : 1960 Patient Status: Inpatient Patient Location: [address] Study Date: 07/30/2018 06:32 PM Height: 73 in Weight: 288 lb BSA: 2.5 m2 Procedure: A two-dimensional transthoracic echocardiogram with color flow Doppler was performed. Study Quality: Poor. The study was technically difficult with many images being suboptimal in quality. Reason For Study: atrial fib History: ATRIAL FIBRILLATION. Ordering Physician: JABARI RIVERA Performed By: Cassidy Stroud Interpretation Summary The left ventricle is normal in size. There is normal left ventricular wall thickness. LV EF is probably 60% Probably no regional wall motion abnormality. The left atrial size is normal. There is no evidence of mitral valve prolapse. There is no mitral valve stenosis. There is a trace amount of mitral regurgitation There is no aortic valve stenosis There is no LVOT obstruction. No aortic regurgitation is present. There is no tricuspid stenosis. There is a trace amount of tricuspid regurgitation Right ventricular systolic pressure is normal. RVSP is normal at 13 to 18 mm of Hg , with RA mean of 5 to 10. The pulmonic valve is not well visualized. There is no pericardial effusion. MMode/2D Measurements & Calculations RVDd: 2.4 cm LVIDd: 4.6 cm FS: 28.2 % Ao root diam: 3.0 cm IVSd: 1.1 cm LVIDs: 3.3 cm EDV(Teich): 95.4 ml Ao root area: 7.3 cm2 LVPWd: 1.1 cm ESV(Teich): 43.4 ml LA dimension: 4.0 cm EF(Teich): 54.5 % Doppler Measurements & Calculations MV E max schuyler: MV P1/2t max schuyler: Ao V2 max: LV V1 max P.7 cm/sec 92.1 cm/sec 133.8 cm/sec 4.5 mmHg MV A max schuyler: MV P1/2t: 62.0 msec Ao max P.2 mmHg LV V1 max: 32.1 cm/sec MVA(P1/2t): 3.5 cm2 106.6 cm/sec MV E/A: 2.0 MV dec slope: 434.9 cm/sec2 MV dec time: 0.20 sec PA V2 max: TR max schuyler: MV P1/2t-pr_phl: 77.3 cm/sec 138.1 cm/sec 62.0 msec PA max PG: TR max P.6 mmHg 2.4 mmHg Left Ventricle The left ventricle is normal in size. There is normal left ventricular wall thickness. LV EF is probably 60%. LV diastolic function could not be adequately assessed due to atrial fibrilation. Probably no regional wall motion abnormality. There is no thrombus. Right Ventricle The right ventricle is not well visualized secondary to technical limitations. Atria Right atrium not well visualized secondary to technical limitations. The left atrial size is normal. Mitral Valve There is no evidence of mitral valve prolapse. There is no vegetation seen on the mitral valve. There is no mitral valve stenosis. There is a trace amount of mitral regurgitation. Aortic Valve There is no aortic valve stenosis. There is no LVOT obstruction. No aortic regurgitation is present. Tricuspid Valve There is no tricuspid stenosis. There is a trace amount of tricuspid regurgitation. Right ventricular systolic pressure is normal. RVSP is normal at 13 to 18 mm of Hg , with RA mean of 5 to 10. Pulmonic Valve The pulmonic valve is not well visualized. Great Vessels The aortic root is not well visualized. Effusions There is no pericardial effusion. : JABARI RIVERA > Deirdre Rodriguez
[2018-08-04 13:14] VITALS: BP 125/83
--- NOTE | 2018-08-04 16:47 | PDOC DISCHARGE SUMMARY ---
General - Admit/Disc Date/PCP Admission Date/Primary Care Provider: 07/30/18 17:33 [facility] Discharge Date: 08/04/18 - Discharge Diagnosis (1) Atrial fibrillation with rapid ventricular response Is this a current diagnosis for this admission?: Yes - Additional Information Resuscitation Status: Full Code Discharge Diet: Cardiac Discharge Activity: Activity As Tolerated, Balance Activity w/Rest Prescriptions: Apixaban [Eliquis 5 mg Tablet] 5 mg PO BID #60 tablet Levofloxacin [Levaquin 500 mg Tablet] 500 mg PO DAILY 3 Days #3 tablet Metoprolol Succinate [Toprol Xl 50 mg Tab.sr] 100 mg PO Q12 #120 tab.sr.24h Home Medications: Apixaban [Eliquis 5 mg Tablet] 5 mg PO BID #60 tablet 08/04/18 Levofloxacin [Levaquin 500 mg Tablet] 500 mg PO DAILY 3 Days #3 tablet 08/04/18 Metoprolol Succinate [Toprol Xl 50 mg Tab.sr] 100 mg PO Q12 #120 tab.sr.24h History of Present Illness History of Present Illness: Admitting hospitalist's H&P: SHELBY CASTILLO is a 57 year old male with history of morbid obesity, ex-smoker, ventricular disease, diabetes, varicose veins came to the emergency room with complaints of fever and shortness of breath for the last 5 days. According to the patient the symptoms started 5 days ago associated with fever chills and sweating, cough with greenish sputum, decided to ride it out but unable to do so he went went to see the primary care physician today and the patient was told that he has a left-sided pneumonia and he has new onset atrial fibrillation so patient decided to came to the emergency room today. In the emergency room chest x-ray shows left lower lobe pneumonia and a EKG shows new onset atrial fibrillation patient was given azithromycin 400 mg IV in the ER and medical consult was called for admission. I went to talk to the patient patient is not in distress alert and oriented communicating very well. He confirmed with me the above history. Also told me he has a 2 episodes of pneumonia this year but he was not admitted he was treated by the PCP with outpatient antibiotic therapy. She did not receive the flu vaccination this year. Flu is negative in the ER. Cultures were sent from the ER. Hospital Course Hospital Course: Patient was initially admitted for pneumonia. Chest x-ray did show left lower lobe PNA. He was started on Rocephin and azithromycin. He went into atrial fibrillation with RVR on 08/01/18 and was started on cardizem drip. He was also started given digoxin. Cardiology also evaluated the patient. He was also started on Eliquis. He was also started on metoprolol 100 mg bid. He did have transient bradycardia the other night hence cardiology recommended overnight pulse oximetry which showed a longest desaturation of 13 seconds with lowest sats at 88%. Patient does have history of CAROL and says he was on CPAP before but he was taken off it when he lost weight. Overnight, he had one episode of transient bradycardia at 48 but he has been mostly running in the 60-70s. He was seen by cardio again this AM. Patient ambulated and HR was in the 70-90s. Cardio recommended formal sleep study outpatient and he will be given an appt with the [facility] (Dr. Peña). He has been given Dr. Craig's number and he will follow up with him next week. He will be given 3 more days of Levaquin for his pneumonia. Physical Exam Vital Signs: Temp Pulse Resp BP Pulse Ox 97.6 F 84 16 125/83 99 08/04/18 13:12 08/04/18 13:12 08/04/18 13:12 08/04/18 13:12 08/04/18 13:12 Pulse Oximeter Nocturnal Start: 08/03/18 11:54 Freq: RTQ4 Status: Complete Protocol: Document 08/04/18 06:15 CMI (Rec: 08/04/18 06:15 CMI [id number]) Nocturnal Pulse Oximetry Equipment Usage Equipment Discontinued Continuous SpO2 Machine # 5 Intake & Output 08/03/18 08/04/18 08/05/18 06:59 06:59 06:59 Intake Total 2823 1120 50 Output Total 950 151 Balance 1873 969 50 Weight 299 lb 6.204 oz 304 lb 0.279 oz General appearance: PRESENT: no acute distress, well-developed, well-nourished Head exam: PRESENT: atraumatic, normocephalic Eye exam: PRESENT: conjunctiva pink, EOMI, PERRLA. ABSENT: scleral icterus Ear exam: PRESENT: normal external ear exam Mouth exam: PRESENT: moist, tongue midline Neck exam: ABSENT: carotid bruit, JVD, lymphadenopathy, thyromegaly Respiratory exam: PRESENT: clear to auscultation inge. ABSENT: rales, rhonchi, wheezes Cardiovascular exam: PRESENT: RRR. ABSENT: diastolic murmur, rubs, systolic murmur Pulses: PRESENT: normal dorsalis pedis pul GI/Abdominal exam: PRESENT: normal bowel sounds, soft. ABSENT: distended, guarding, mass, organolmegaly, rebound, tenderness Rectal exam: PRESENT: deferred Neurological exam: PRESENT: alert, awake, oriented to person, oriented to place, oriented to time, oriented to situation, CN II-XII grossly intact. ABSENT: motor sensory deficit Results Laboratory Results: 08/04/18 04:13 08/04/18 04:13 08/04/18 08/04/18 04:13 04:13 WBC 7.4 RBC 5.14 Hgb 15.0 Hct 44.7 MCV 87 MCH 29.1 MCHC 33.5 RDW 14.1 H Plt Count 149 L Seg Neutrophils % Not Reportable Lymphocytes % Not Reportable Monocytes % Not Reportable Eosinophils % Not Reportable Basophils % Not Reportable Absolute Neutrophils Not Reportable Absolute Lymphocytes Not Reportable Absolute Monocytes Not Reportable Absolute Eosinophils Not Reportable Absolute Basophils Not Reportable Sodium 138.3 Potassium 3.9 Chloride 102 Carbon Dioxide 30 Anion Gap 6 BUN 28 H Creatinine 0.78 Est GFR ( Amer) > 60 Est GFR (Non-Af Amer) > 60 Glucose 91 Calcium 7.6 L Magnesium 2.2 Total Bilirubin 0.5 AST 38 ALT 45 Alkaline Phosphatase 52 Total Protein 5.3 L Albumin 2.7 L 07/30/18 16:25 Blood Blood Culture - Final NO GROWTH IN 5 DAYS 07/30/18 07/30/18 07/30/18 16:00 19:00 23:12 CK-MB (CK-2) 0.76 1.42 Troponin I < 0.012 < 0.012 < 0.012 NT-Pro-B Natriuret Pep 08/01/18 07:17 CK-MB (CK-2) Troponin I NT-Pro-B Natriuret Pep 1060 H Impressions: Chest CT 07/30/18 00:00 IMPRESSION: Left lower lobe and minimal right middle lobe pneumonia. Chest X-Ray 07/30/18 16:09 IMPRESSION: Left lower lobe pneumonia. Qualifiers - * PATIENT BEING DISCHARGED WITH ANY OF THE FOLLOWING DIAGNOSIS: No
--- NOTE | 2018-08-04 19:08 | Progress Note ---
Provider Note Provider Note: CARDIOLOGY PROGRESS NOTE by Dr. Deirdre Rodriguez on 08/04/2018. SUBJECTIVE: The patient shortness of breath is improved. He continues to be in atrial fibrillation. With ambulation his heart rate went up into the low 90s. The patient denies any chest pain or discomfort. There is no bleeding on Eliquis. There is no TIA CVA symptoms. There is no PND orthopnea. There is no leg edema. Note that the patient's nocturnal pulse oximetry showed borderline hypoxemia with sats going down between 80-89% only a few times. But the patient will benefit from an outpatient repeat sleep study to make sure he does not have obstructive sleep apnea. PHYSICAL EXAMINATION: The patient is moderately to morbidly obese. He is well- groomed. He is in no acute distress. Selected Entries 08/04/18 10:48 Temperature 97.6 F Temperature Oral Source Pulse Rate 84 Respiratory 16 Rate Blood Pressure 121/73 Blood Pressure 89 Mean BP Location Right Arm BP Position Supine O2 Sat by Pulse 99 Oximetry Oxygen Delivery Room Air Method HEAD: Is atraumatic normocephalic. EYES: His pupils are equal round regular reactive to light accommodation there is no conjunctival pallor there is no scleral icterus. ENT: Is negative. NECK: Supple. There is mild JVD still present. Carotids are equal there is no bruit. There is no lymphadenopathy. There is no goiter. LUNGS: Clear without any rhonchi rales or wheezing. No rales of CHF. There is no chest wall tenderness. S1-S2 is heard S1 is of variable intensity. There is no S3 gallop there is no S4 gallop. There is systolic murmur of mitral regurgitation and tricuspid regurgitation present. There is no murmur of aortic stenosis or aortic regurgitation. There is no rub. Abdomen: Is obese. Nontender. Bowel sounds are well heard. There is no hepatosplenomegaly. EXTREMITIES: Femorals are deep. Femorals are diminished. There is no femoral bruits. Leg pulses are diminished. There is trace pedal edema. There is no DVT or cellulitis. There is no calf tenderness. There is no cyanosis or clubbing. HAM CLERK: The patient is conscious awake alert oriented x3 with no focal deficits. PSYCHIATRIC: The patient judgment and insight are intact his affect is normal 08/04/18 08/04/18 04:13 04:13 WBC 7.4 RBC 5.14 Hgb 15.0 Hct 44.7 MCV 87 MCH 29.1 RDW 14.1 H Plt Count 149 L Sodium 138.3 Potassium 3.9 Chloride 102 Carbon Dioxide 30 Anion Gap 6 IMPRESSION/RECOMMENDATION: 1. Persistent atrial fibrillation with controlled ventricular response, at rest: The plan is to continue the patient on betablocker , and Eliquis. 2. Pneumonia left lower lobe, and right middle lobe, continue antibiotics.. Clinically seems to have resolved 3.Hyperlipidemia: will start statins after discussions with patient and . This can be done as an outpatient. 4.with the patient's bradycardia at night, suspect sleep apnea. The nocturnal off oximetry shows borderline hypoxemic episodes anyhow the patient would be recommended to have a outpatient sleep study to be absolutely sure he does not have obstructive sleep apnea. 5.Obesity. Later would recommend the patient have a 30-day event monitor, to assess rate control in atrial fibrillation, and undergo an IV Lexiscan Cardiolite stress test. This can be done as an outpatient. The patient is anxious to go home. His rate is well controlled. The patient follow-up with me in the office. The patient has my cell phone number to call me if if any problems should arise. Medications reviewed. Discharge medications discussed with the attending physician on the case. Note 40 minutes spent on this patient more than 50% of time spent in direct patient care. Medical decision making today is of moderate complexity. All questions from the and the patient have been answered appropriately and to their understanding.
[2018-08-05] MEDS ORDERED: CEFTRIAXONE 1 GM/D5W RTU 1 GM/50 ML RTUPB IV SCH (10:00)
== END 2018-08-04 13:58 | disposition home or self-care (01) | DRG 308 ==
LOC: ER 15:10 → EH 17:33 → 3W 19:51 → 5 08-01 04:30 → 3W 08-01 10:49
PROVIDERS: ADMIT Internal Medicine; ATTEND Internal Medicine
DX: I48.1 Persistent atrial fibrillation (principal); J18.9 Pneumonia, unspecified organism; E66.01 Morbid (severe) obesity due to excess calories; R00.1 Bradycardia, unspecified; E11.9 Type 2 diabetes mellitus without complications; E78.5 Hyperlipidemia, unspecified; I83.90 Asymptomatic varicose veins of unspecified lower extremity; Z79.01 Long term (current) use of anticoagulants; Z68.38 Body mass index [BMI] 38.0-38.9, adult; Z87.891 Personal history of nicotine dependence; Z80.6 Family history of leukemia; Z80.8 Family history of malignant neoplasm of other organs or systems
CPT/HCPCS: 36415; 71046; 71250; 80048; 80053; 80061; 82553; 82962; 83036; 83605; 83735; 83880; 84439; 84443; 84481; 84484; 85025; 85610; 85730; 87040; 87070; 87205; 87804; 93005; 93010; 93306; 94762; 96361; 96374; 99291; J0456; J0696; J1160; J1644; J2920; J3490; J7030; J7060

== ENCOUNTER 2019-02-01 10:10 | Inpatient (IN) | payer BC ==
[2019-02-01 11:11] LABS: ABSOLUTE EOSINOPHILS # (AUTO) 0.1 10^3/uL (0.0-0.6); ABSOLUTE LYMPHOCYTES (AUTO) 1.2 10^3/uL (0.5-4.7); ABSOLUTE MONOCYTES (AUTO) 0.5 10^3/uL (0.1-1.4); ABSOLUTE NEUT (AUTO) 5.1 10^3/uL (1.7-8.2); BASOPHILS % (AUTO) 0.5 % (0-2); HEMATOCRIT 45.3 % (37.9-51.0); HEMOGLOBIN 15.1 g/dL (13.5-17.0); MEAN CORPUSCULAR HEMOGLOBIN 29.7 pg (27.0-33.4); MEAN CORPUSCULAR HGB CONC 33.3 g/dL (32.0-36.0); MEAN CORPUSCULAR VOLUME 89 fl (80-97); MONOCYTES % (AUTO) 7.5 % (3-13); PLATELET COUNT 186 10^3/uL (150-450); RED BLOOD COUNT 5.07 10^6/uL (4.35-5.55); RED CELL DISTRIBUTION WIDTH 14.5 % (11.5-14.0); TOTAL CELLS COUNTED % (AUTO) 100 %; WHITE BLOOD COUNT 6.9 10^3/uL (4.0-10.5)
[2019-02-01] MEDS ORDERED: SOTALOL HCL 80 MG TABLET PO ONE ×2 (11:15→15:15)
[2019-02-01 11:31] LABS: ANION GAP 6 (5-19); BLOOD UREA NITROGEN 25 mg/dL (7-20); CALCIUM 8.9 mg/dL (8.4-10.2); CARBON DIOXIDE 27 mmol/L (22-30); CHLORIDE 105 mmol/L (98-107); GLUCOSE 102 mg/dL (75-110); POTASSIUM 4.2 mmol/L (3.6-5.0); SODIUM 138.1 mmol/L (137-145)
[2019-02-01] MEDS: APIXABAN 5 MG TABLET PO SCH ×2 (15:17→21:23)
[2019-02-01] MEDS ORDERED: PROPOFOL INJ 200 MG/20 ML VIAL IV ONE (15:59)
--- NOTE | 2019-02-01 22:52 | PDOC CONSULTATION ---
Consultation-Blank Consultation: HISTORY AND PHYSICAL by Dr. Deirdre Rodriguez. DATE OF ADMISSION: February 01, 2019. REASON FOR admission for admission/chief complaint: Patient admitted for elective cardioversion. HISTORY PRESENT ILLNESS: Patient is a 58-year-old male who was diagnosed with atrial fibrillation in July 2019, and has been on chronic anticoagulant agent therapy since then is admitted for elective cardioversion by the chemical or electrical. The patient denies any chest pain or discomfort. There is no PND orthopnea. There is no palpitations. There is no dizziness or near syncope and syncope. There is no leg edema. There is no bleeding on Eliquis. There is no TIA CVA symptoms. There is no dizziness or syncope or near syncopal episodes. PAST MEDICAL ILLNESS: The patient states in the past he had sleep apnea, on CPAP, and was a diabetic. He was also morbidly obese at that time, and after laparoscopic bariatric surgery for weight loss. Patient lost weight, and was no more a diabetic. And he did not need any antidiabetic treatment since he was not a diabetic anymore. He denies any chest hypertension. He denies any chest pain or discomfort. There is no history of coronary artery disease. No history of ND or anginal symptoms. No history of congestive heart failure. No prior history of atrial fibrillation. There is no history of PND orthopnea or syncope. No history of thyroid disease. No history of TIA or CVA. No history of asthma or COPD. Patient states when he was morbidly obese prior to his bariatric surgery he was using CPAP for sleep apnea, but with losing weight he has not had to use it anymore, and he states that his sleep apnea has resolved. There is no history of anxiety or depression. PAST SURGICAL HISTORY: Prior history of bariatric surgery/lap band surgery for morbid obesity. FAMILY HISTORY: The patient thinks his mother had CAD. Mother also had melanoma. ALLERGIES: There is no known allergies. SOCIAL HISTORY: The patient quit smoking more than 35 years ago. There is no history of EtOH abuse. DISPOSITION: The patient is a full code his is his surrogate healthcare decision maker. REVIEW OF SYSTEMS:REVIEW OF SYSTEMS: CONSTITUTIONAL: There is a history of fever and chills, but no rigors, and no generalized weakness, but complains of some fatigue. EAD: No history of headaches or head injury. EYES: No history of amblyopia diplopia no history of amaurosis fugax. EARS: No history of tinnitus. This patient has mild hearing loss, no vertigo. NOSE: The patient is seasonal allergies, but no hayfever. There is no nosebleeds. MOUTH: No altered taste sensation no ulcers in the mouth THROAT: No history of odynophagia dysphagia no recurrent sore throats. SKIN: No history of pruritus no history of allergies discoloration of the skin. No history of skin cancer, no history of psoriasis. NECK: No neck pain. No lymphadenopathy. No goiter. LUNGS: Recent symptoms of cough with greenish sputum, and chest x-ray and CTA of the chest show pneumonia. No history of asthma COPD no history of wheezing. No history of pulmonary embolism. No history of pleuritic chest pain no hemoptysis. No history of sleep apnea. No symptoms of upper or lower respiratory tract infections. HEART: No history of hypertension. No history of prior paroxysmal atrial fibrillation. No history of congestive heart failure .There is a history of ND anginal symptoms or coronary artery disease. No syncope. No history of leg edema no history of PND orthopnea. Denies any history of palpitations. In fact even when he is in atrial fibrillation with rapid ventricular response, the patient had no palpitations. ENDOCRINE:There is a prior history of diabetes. But he states after he lost weight after bariatric surgery, he was not a diabetic anymore, and is not on antidiabetic medications or antidiabetic diet. No history of heat or cold intolerance no history of polydipsia polyuria. The patient has no hyperthyroidism or hypothyroidism.. RENAL: No history of chronic kidney disease. No symptoms of hematuria pyuria or dysuria. No symptoms of UTI . GI: History of bariatric/gastric bypass surgery in the past no history of GI bleed no history of GERD no history of peptic ulcer disease no history of fatty food intolerance. No history of hepatitis. No history of jaundice. No history of altered bowel movements. MUSCULOSKELETAL: Denies history of arthritis or collagen vascular disease. MOBILE PARAMEDICAL EXAMINER: No history of TIA or CVA. No history of headaches migraines or seizures. No history of sleep apnea. PSYCHIATRIC: No history of anxiety or depression. No history of suicidal ideation. No history of homicidal ideation. VASCULAR: The patient does have ascending and descending thoracic aortic aneurysms which is stable and the patient is asymptomatic. No DVT. No history of calf or buttock claudication. HEMATOLOGICAL: No history of bleeding diathesis no history of clotting disorders. PHYSICAL EXAMINATION: The patient is moderately obese. He is well-groomed in no acute distress. PRE-CARDIOVERSION VITAL SIGNS: 02/01/19 02/01/19 02/01/19 10:32 11:24 15:04 Temperature 97.7 F Temperature Oral Source Pulse Rate 76 Respiratory 16 Rate Blood Pressure 127/80 H Blood Pressure 95 Mean BP Location Right Arm BP Position Sitting O2 Sat by Pulse 96 Oximetry Oxygen Delivery Room Air Room Air Method Arrhythmia Afib Rhythm Status POST CARDIOVERSION VITAL SIGNS: 02/01/19 02/01/19 15:47 16:00 Temperature Temperature Source Pulse Rate 53 L Respiratory Rate Blood Pressure 117/80 Blood Pressure 92 Mean BP Location BP Position O2 Sat by Pulse 100 Oximetry Oxygen Delivery Method Arrhythmia Sinu Rhythm Status HEAD: Is atraumatic normocephalic. EYES: Pupils are equal round regular reactive light accommodation. Extraocular movements are normal. There is no conjunctival pallor. There is no scleral icterus. EARS: Tympanic membranes are intact. External auditory canals are clear. NOSE: There is no deviated nasal septum. There is no inflammation of the nasal mucous membrane. MOUTH: Nasal mucous membranes of the mouth are moist. Tongue is moist. There is no ulcers. There is no bleeding from the gums. THROAT: There is no redness of the oropharynx. There is no exudates. SKIN: There is no skin rashes. There is no particular ecchymosis. There is no skin lesions. NECK: Is supple. There is no JVD. Carotids equal there is no bruits. There is no lymphadenopathy. There is no accessory muscle respiration use. Trachea central. LUNGS: Is clear to auscultation percussion without any rhonchi rales wheezing. HEART: S1-S2 is heard. There is no S3 gallop. There is no S4 gallop. S1 is of variable intensity. There is systolic murmur left sternal border and the apex there is no rub. ABDOMEN: Is mildly obese. There is no hepatospleno megaly. There is no tenderness. There is no masses. EXTREMITIES: Femorals are deep. There is no femoral bruits. Leg pulses are well felt. There is no pedal edema. There is no DVT or cellulitis. There is no calf tenderness. There is no DVT or cellulitis. There is no pedal edema. There is no clubbing or cyanosis. MOBILE PARAMEDICAL EXAMINER: The patient is conscious awake alert oriented x3 with no focal deficits. PSYCHIATRIC: The patient judgment insight are intact her affect is normal. POST SUCCESSFUL CARDIOVERSION: The physical examination remains the same except the patient's S1 is of normal intensity. Other physical findings are the same. Current Medications Generic Name Dose Route Start Last Admin Trade Name Freq PRN Reason Stop Dose Admin Apixaban 5 mg 02/01/19 11:15 02/01/19 21:23 Eliquis 5 Mg Tablet PO 03/03/19 11:14 5 mg Q12 IVA Administration Discontinued Medications Generic Name Dose Route Start Last Admin Trade Name Freq PRN Reason Stop Dose Admin Propofol Confirm 02/01/19 15:59 Diprivan Inj 200 Mg/20 Ml Vial Administered 02/01/19 16:00 Dose 200 mg IV .STK-MED ONE Sotalol HCl 80 mg 02/01/19 11:15 02/01/19 15:16 Betapace 80 Mg Tablet PO 02/01/19 11:16 80 mg NOW ONE Administration Sotalol HCl 80 mg 02/01/19 15:15 02/01/19 15:17 Betapace 80 Mg Tablet PO 02/01/19 15:16 Not Given NOW ONE Current Home Medications Loratadine [Claritin] 10 mg PO DAILY 02/01/19 [History] Metoprolol 50 mg p.o. every 12 hours. Eliquis 5 mg p.o. twice daily. Labs- Entire Visit 02/01/19 02/01/19 10:55 10:55 WBC 6.9 RBC 5.07 Hgb 15.1 Hct 45.3 MCV 89 MCH 29.7 MCHC 33.3 RDW 14.5 H Plt Count 186 Seg Neutrophils % 73.0 Lymphocytes % 18.0 Monocytes % 7.5 Eosinophils % 1.0 Basophils % 0.5 Absolute Neutrophils 5.1 Absolute Lymphocytes 1.2 Absolute Monocytes 0.5 Absolute Eosinophils 0.1 Absolute Basophils 0.0 Sodium 138.1 Potassium 4.2 Chloride 105 Carbon Dioxide 27 Anion Gap 6 BUN 25 H Creatinine 0.88 Est GFR ( Amer) > 60 Est GFR (Non-Af Amer) > 60 Glucose 102 Calcium 8.9 Magnesium 1.7 EKG: Atrial fibrillation with controlled ventricular response. Post cardioversion patient is EKG shows sinus rhythm with first-degree AV block. The patient's QTC is within normal limits in both EKGs. IMPRESSION/RECOMMENDATION: 1. Paroxysmal atrial fibrillation. Patient in sinus rhythm status post successful electrical cardioversion. Please see report. 2. Hyperlipidemia we will check lipid levels and LFTs in the a.m. 3. Obesity. Note that the patient post cardioversion is awake alert and oriented x3 and remains in sinus bradycardia. The patient already received Eliquis 5 mg in the morning and will need to be continued at 5 mg p.o. twice daily. The patient metoprolol has been stopped. The patient did receive 80 mg of sotalol this morning prior to his electrical cardioversion. Will wait for the heart rate, before resuming the sotalol at 80 mg p.o. every 12 hours or 40 mill grams p.o. every 12 hours. Will watch for proarrhythmia and, and get serial EKGs daily to assess QTC interval. Note 50 minutes spent on this patient with more than 50% of time spent in direct patient care. Medical decision making is of moderate to high complexity in view of the decision made to cardiovert the patient which was successfully done. Will follow. Successful cardioversion was discussed with the patient and the patient's . We will recheck the patient is EKG in the a.m.
--- NOTE | 2019-02-01 23:01 | Progress Note ---
Provider Note Provider Note: PROCEDURE NOTE by Dr. Deirdre Rodriguez on 02/01/2019. PROCEDURE: Successful synchronized biphasic direct-current cardioversion of atrial fibrillation to sinus rhythm with 200 J and one attempt. PROCEDURE: The procedure of electrical cardioversion was discussed with the patient detail. And subsequently with the patient's . The benefits and risks and complications have been discussed in detail. The risks and complications which include, but are not limited to skin espana, stroke, development of bradycardia requiring temporary or permanent pacemaker, need for CPR, development of ventricular arrhythmias requiring further cardioversion have all been discussed in detail and informed consent was obtained. Anesthesia was consulted for management of the patient's conscious sedation area. Defibrillator pads were up were placed in the front and back of the chest. With anesthesia giving the patient conscious sedation and managing the patient's airway and oxygenation, the patient was given 1 shock of synchronized biphasic current of 200 J the patient with 1 shock converted to sinus rhythm. The patie nt subsequently awakened from his conscious sedation. He was awake alert oriented x3 with movement to all 4 extremities. There was no evidence of ventricular arrhythmias or atrial arrhythmias, no pauses ulcers or significant symptomatic bradycardia, and no evidence of CVA. Impression: Successful Synchronized Biphasic Direct Current Cardioversion of Atrial Fibrillation to Sinus Mechanism. Will restart the patient on sotalol as per the patient's heart rate. We will also get daily EKGs for QTC management, and will also watch the patient's development of any proarrhythmia.
--- NOTE | 2019-02-02 00:32 | EKG REPORT ---
SEVERITY:- ABNORMAL ECG - ATRIAL FIBRILLATION : Confirmed by: Jamin Carvalho 02-Feb-2019 00:32:22
--- NOTE | 2019-02-02 00:33 | EKG REPORT ---
SEVERITY:- ABNORMAL ECG - SINUS RHYTHM FIRST DEGREE AV BLOCK : Confirmed by: Jamin Carvalho 02-Feb-2019 00:32:12
[2019-02-02 08:17] LABS: ALANINE AMINOTRANSFERASE 18 U/L (21-72); ALBUMIN 3.9 g/dL (3.5-5.0); ALKALINE PHOSPHATASE 69 U/L (38-126); ASPARTATE AMINO TRANSFERASE 23 U/L (17-59); BILIRUBIN,DIRECT 0.2 mg/dL (0.0-0.4); BILIRUBIN,TOTAL 1.1 mg/dL (0.2-1.3); CHOLESTEROL 141.23 mg/dL (0-200); TOTAL PROTEIN 6.6 g/dL (6.3-8.2); TRIGLYCERIDES 124 mg/dL (<150)
[2019-02-02 08:29] LABS: DIRECT LDL 83 mg/dL (<100)
[2019-02-02] MEDS: APIXABAN 5 MG TABLET PO SCH ×2 (09:24→22:16)
[2019-02-02] MEDS: SOTALOL HCL 80 MG TABLET PO SCH ×2 (11:10→22:16)
--- NOTE | 2019-02-02 14:55 | EKG REPORT ---
SEVERITY:- NORMAL ECG - SINUS RHYTHM : Confirmed by: Jamin Carvalho 02-Feb-2019 14:54:24
--- NOTE | 2019-02-02 21:17 | Progress Note ---
Provider Note Provider Note: CARDIOLOGY PROGRESS NOTE by Dr. Deirdre Rodriguez on 02/02/2019. SUBJECTIVE: The patient remains in sinus rhythm. After the patient was ambulated his heart rate went up into the high 60s. Hence we were able to start the patient on sotalol at 40 mg p.o. every 12 hours. There is no proarrhythmias on the monitor. The patient has no chest pain or discomfort. There is no PND orthopnea. There is no leg edema. There is no bleeding on Eliquis. There is no TIA CVA symptoms PHYSICAL EXAMINATION: The patient is morbidly obese. In no acute distress. Is well-groomed. Selected Entries 02/02/19 09:29 Temperature 97.9 F Temperature Oral Source Pulse Rate 61 Respiratory 18 Rate Blood Pressure 113/70 Blood Pressure 84 Mean BP Location Left Arm BP Position Supine O2 Sat by Pulse 100 Oximetry Oxygen Delivery Room Air Method HEAD: Is atraumatic normocephalic. EYES: Pupils are equal round regular reactive light accommodation. Extraocular movements are normal. There is no conjunctival pallor. There is no scleral icterus. EARS: Tympanic membranes are intact. External auditory canals are clear. NOSE: There is no deviated nasal septum. There is no inflammation of the nasal mucous membrane. MOUTH: Nasal mucous membranes of the mouth are moist. Tongue is moist. There is no ulcers. There is no bleeding from the gums. THROAT: There is no redness of the oropharynx. There is no exudates. SKIN: There is no skin rashes. There is no particular ecchymosis. There is no skin lesions. NECK: Is supple. There is no JVD. Carotids equal there is no bruits. There is no lymphadenopathy. There is no accessory muscle respiration use. Trachea central. LUNGS: Is clear to auscultation percussion without any rhonchi rales wheezing. HEART: S1-S2 is heard. There is no S3 gallop. There is no S4 gallop. S1 is of normal intensity. There is systolic murmur left sternal border and the apex there is no rub. ABDOMEN: Is mildly obese. There is no hepatospleno megaly. There is no tenderness. There is no masses. EXTREMITIES: Femorals are deep. There is no femoral bruits. Leg pulses are well felt. There is no pedal edema. There is no DVT or cellulitis. There is no calf tenderness. There is no DVT or cellulitis. There is no pedal edema. There is no clubbing or cyanosis. CASINO ACCOUNTANT: The patient is conscious awake alert oriented x3 with no focal deficits. PSYCHIATRIC: The patient judgment insight are intact her affect is normal. Labs- All tests 24 hr 02/02/19 07:26 Total Bilirubin 1.1 Direct Bilirubin 0.2 Neonat Total Bilirubin Not Reportable Neonat Direct Bilirubin Not Reportable Neonat Indirect Bili Not Reportable AST 23 ALT 18 L Alkaline Phosphatase 69 Total Protein 6.6 Albumin 3.9 Triglycerides 124 Cholesterol 141.23 LDL Cholesterol Direct 83 VLDL Cholesterol 25.0 HDL Cholesterol 38 L EKG: Done this morning shows sinus bradycardia within normal limits. QTc is acceptable at 421. IMPRESSION/RECOMMENDATION: 1. Paroxysmal atrial fibrillation: Patient was in atrial fibrillation successfully cardioverted to sinus rhythm. Patient remains in sinus rhythm. Continue sotalol at 40 mg p.o. every 12 hours. Watch for QTC prolongation and proarrhythmia. Continue Eliquis. 2. Dyslipidemia. Good LDL and triglyceride levels, with low HDL level. 3. Morbid obesity. Medications reviewed and adjusted. Management plan discussed with the patient. We will recheck the patient's EKG in the a.m. Medical decision making is of moderate complexity. Hopefully patient can be discharged home tomorrow. 40 minutes spent on this patient with more than 50% of time spent in direct patient care. Will follow.
[2019-02-03 07:57] VITALS: BP 124/78
[2019-02-03] MEDS: SOTALOL HCL 80 MG TABLET PO SCH (09:59)
[2019-02-03] MEDS: APIXABAN 5 MG TABLET PO SCH (10:00)
--- NOTE | 2019-02-03 10:21 | PDOC DISCHARGE SUMMARY ---
General - Admit/Disc Date/PCP Admission Date/Primary Care Provider: 02/01/19 10:10 - Discharge Diagnosis (1) Paroxysmal atrial fibrillation Is this a current diagnosis for this admission?: Yes (2) Dyslipidemia Is this a current diagnosis for this admission?: Yes (3) Obesity Is this a current diagnosis for this admission?: Yes - Additional Information Discharge Diet: Cardiac Discharge Activity: Activity As Tolerated Prescriptions: Sotalol HCl [Betapace 80 mg Tablet] 40 mg PO Q12 #180 tablet Home Medications: Apixaban [Eliquis 5 mg Tablet] 5 mg PO BID #60 tablet 08/04/18 Loratadine [Claritin] 10 mg PO DAILY 02/01/19 Apixaban [Eliquis 5 mg Tablet] 5 mg PO Q12 tablet 02/03/19 Sotalol HCl [Betapace 80 mg Tablet] 40 mg PO Q12 #180 tablet 02/03/19 History of Present Illness Patient complains of: Patient admitted for elective cardioversion of atrial fibrillation. History of Present Illness: SHELBY CASTILLO is a 58 year old male Please See Admission H&P/consult. Patient is a 58-year-old male with history of persistent atrial fibrillation who has been on Eliquis since August 2018. The patient's rate has been controlled on metoprolol. The patient is being admitted for elective chemical/electrical cardioversion of atrial fibrillation to sinus rhythm. The patient has a history of dyslipidemia, and also has a history of obesity. The patient denies any chest pain or discomfort. There is no PND orthopnea or leg edema. There is no palpitations or near syncope or syncope. There is no bleeding on Eliquis. There is no TIA or CVA symptoms. Hospital Course Hospital Course: The patient was placed on telemetry monitoring. The patient was kept n.p.o. The patient was given sotalol 80 mg p.o. x1 dose. Subsequently with anesthesia's monitoring the patient's airway and administering conscious sedation the patient was successfully cardioverted with synchronized 200 J biphasic DC current. The patient awakened from the procedure without any complications. There is no evidence of any stroke or any other complication. The patient subsequently remained in sinus rhythm. Initially on the day of DC cardioversion the patient was bradycardic. The next day the patient's heart rate came up in the high 60s and the patient was started on sotalol 40 mg p.o. every 12 hours. The patient tolerated the medicine and there were no proarrhythmic effects on sotalol. The QTC by daily EKGs was monitored and this did not show any unacceptable QTC prolongation. The patient was asymptomatic. And remained in sinus rhythm. The patient was discharged in stable condition. He will follow-up with me in the office in 1 to 2 weeks. Physical Exam Vital Signs: Temp Pulse Resp BP Pulse Ox 98.3 F 58 L 16 124/78 99 02/03/19 07:07 02/03/19 07:07 02/03/19 07:07 02/03/19 07:07 02/03/19 07:07 Intake & Output 02/02/19 02/03/19 02/04/19 06:59 06:59 06:59 Intake Total 910 860 Balance 910 860 Weight 140 kg 138.7 kg Results Laboratory Results: 02/01/19 10:55 02/01/19 10:55
--- NOTE | 2019-02-03 17:55 | EKG REPORT ---
SEVERITY:- ABNORMAL ECG - SINUS RHYTHM FIRST DEGREE AV BLOCK BORDERLINE R WAVE PROGRESSION, ANTERIOR LEADS : Confirmed by: Jamin Carvalho 03-Feb-2019 17:55:27
== END 2019-02-03 12:15 | disposition home or self-care (01) | DRG 310 ==
LOC: 3S 10:10
PROVIDERS: ADMIT Specialist; ATTEND Specialist
PROC: 5A2204Z Restoration of Cardiac Rhythm, Single (ICD-10-PCS; principal; 2019-02-01)
DX: I48.0 Paroxysmal atrial fibrillation (principal); E78.5 Hyperlipidemia, unspecified; E66.9 Obesity, unspecified; I48.1 Persistent atrial fibrillation; I44.0 Atrioventricular block, first degree; Z79.01 Long term (current) use of anticoagulants; Z87.891 Personal history of nicotine dependence; Z98.84 Bariatric surgery status
CPT/HCPCS: 36415; 410; 80048; 80061; 80076; 83735; 85025; 93005; 93010; J2704; J3490

== ENCOUNTER 2019-03-17 01:11 | Emergency (ER) | payer BC ==
[2019-03-17] MEDS ORDERED: HYDROMORPHONE HCL INJ/PF 2 MG/ML AMPULE IV ONE ×4 (04:45→15:55)
[2019-03-17] MEDS ORDERED: ONDANSETRON HCL INJ/PF 4 MG/2 ML SDV IV ONE ×2 (04:45→10:24)
--- NOTE | 2019-03-17 04:49 | ER Document Report ---
ED Medical Screen (RME) - General Chief Complaint: Knee Pain Stated Complaint: LEFT KNEE PAIN TRAVEL OUTSIDE OF THE [place] IN LAST 30 DAYS: No - HPI Notes: 03/17/19 04:46 Patient is a 58-year-old male with recent TKR who presents to the emergency department for evaluation of increased knee pain. He had a left total knee replacement 5 days ago. They pulled the drain on Friday with the intent of discharging him to home. Unfortunately, a piece of the drain was left in the knee, so they reopened the knee on Friday. He was discharged the next day. Things were going well until today when he had a sudden onset of increased pain. He rates it a 10 out of 10. Denies any fevers or chills. No nausea or vomiting. He tried to Percocet at home without any significant relief. He states that he developed "red dots" all over his leg since arriving here in the emergency department. - Related Data Smoking: Non-smoker Allergies/Adverse Reactions: No Known Allergies Allergy (Verified 03/17/19 01:24) Home Medications: Sotalol, Eliquis, Percocet Past Medical History - General Information source: Patient - Social History Cigarette use (# per day): No Frequency of alcohol use: None Family history: Reviewed & Not Pertinent - Past Medical History Cardiac Medical History: Reports: Hx Atrial Fibrillation Renal/ Medical History: Denies: Hx Peritoneal Dialysis Psychiatric Medical History: Denies: Hx Depression Past Surgical History: Reports: Hx Orthopedic Surgery - Left total knee replacement, Other - History of lap band surgery for morbid obesity. - Immunizations Hx Diphtheria, Pertussis, Tetanus Vaccination: No Physical Exam - Vital signs Vitals: Temp Pulse Resp BP Pulse Ox 98.2 F 73 20 149/76 H 94 03/17/19 01:23 03/17/19 01:23 03/17/19 01:23 03/17/19 01:23 03/17/19 01:23 - Notes Notes: Vital signs reviewed, please see chart. This is a pleasant 58-year-old male in amount of moderate distress secondary to pain. Heart is regular rate and rhythm, lungs are clear to auscultation bilaterally. Abdomen is obese, nontender, normoactive bowel sounds. Patient has 2+ edema to the lower extremity. There is scattered petechiae to the entire left lower extremity. He has a well approximated surgical cicatrix to the anterior knee consistent with recent total knee replacement. There are Steri-Strips in place. Mild reactive appearing erythema is noted. Neurovascularly intact distally. Course - Re-evaluation Re-evalutation: 03/17/19 04:49 Patient presents emergency department for evaluation. Because of the Eliquis I did feel inclined to order CBC and coags. Metabolic panel was ordered. I did order x-ray, pain medication. I have greeted and performed a rapid initial assessment of this patient. A comprehensive ED assessment and evaluation of the patient, analysis of test results and completion of medical decision making process will be conducted by an additional ED providers. - Vital Signs Vital signs: Temp Pulse Resp BP Pulse Ox 98.2 F 73 20 149/76 H 94 03/17/19 01:23 03/17/19 01:23 03/17/19 01:23 03/17/19 01:23 03/17/19 01:23
[2019-03-17 05:36] LABS: ABSOLUTE LYMPHOCYTES (AUTO) 0.7 10^3/uL (0.5-4.7); ABSOLUTE MONOCYTES (AUTO) 0.9 10^3/uL (0.1-1.4); ABSOLUTE NEUT (AUTO) 5.7 10^3/uL (1.7-8.2); BASOPHILS % (AUTO) 0.3 % (0-2); EOSINOPHILS % (AUTO) 0.7 % (0-6); HEMATOCRIT 32.9 % (37.9-51.0); MEAN CORPUSCULAR HEMOGLOBIN 29.8 pg (27.0-33.4); MEAN CORPUSCULAR HGB CONC 33.6 g/dL (32.0-36.0); MEAN CORPUSCULAR VOLUME 89 fl (80-97); MONOCYTES % (AUTO) 12.9 % (3-13); PLATELET COUNT 222 10^3/uL (150-450); RED CELL DISTRIBUTION WIDTH 14.4 % (11.5-14.0); SEGMENTED NEUTROPHILS % (AUTO) 77.1 % (42-78); TOTAL CELLS COUNTED % (AUTO) 100 %; WHITE BLOOD COUNT 7.3 10^3/uL (4.0-10.5)
--- NOTE | 2019-03-17 05:53 | RADIOLOGY REPORT (SQ) ---
EXAM DESCRIPTION: XR KNEE 3 VIEWS COMPLETED DATE/TME: 03/17/2019 04:45 CLINICAL HISTORY: 58 years, Male, Increased pain after TKR COMPARISON: None. NUMBER OF VIEWS: Three TECHNIQUE: Three views of the left knee LIMITATIONS: None. FINDINGS: There are changes of a left knee arthroplasty in satisfactory alignment with no evidence of hardware complication. There is no acute fracture or dislocation. A small suprapatellar joint effusion is present. IMPRESSION: Changes of a recent total knee arthroplasty with no unexpected postoperative finding. copyright 2010 [employer]- All Rights Reserved
[2019-03-17 05:57] LABS: ALBUMIN 3.5 g/dL (3.5-5.0); ALKALINE PHOSPHATASE 64 U/L (38-126); ANION GAP 15 (5-19); ASPARTATE AMINO TRANSFERASE 28 U/L (17-59); BILIRUBIN,DIRECT 0.4 mg/dL (0.0-0.4); BILIRUBIN,TOTAL 1.3 mg/dL (0.2-1.3); BLOOD UREA NITROGEN 19 mg/dL (7-20); CALCIUM 8.7 mg/dL (8.4-10.2); CARBON DIOXIDE 21 mmol/L (22-30); CHLORIDE 101 mmol/L (98-107); GLUCOSE 113 mg/dL (75-110); POTASSIUM 3.8 mmol/L (3.6-5.0)
[2019-03-17 05:58] LABS: INTERNATIONAL RATION (INR) 1.22; PROTHROMBIN TIME 15.5 SEC (11.4-15.4)
[2019-03-17 05:59] LABS: PARTIAL THROMBOPLASTIN TIME 38.3 SEC (23.5-35.8)
--- NOTE | 2019-03-17 06:28 | ER Document Report ---
ED Extremity Problem, Lower - General Chief Complaint: Knee Pain Stated Complaint: LEFT KNEE PAIN Time Seen by Provider: 03/17/19 06:09 Primary Care Provider: KHUSHBU MESSINA DO [Primary Care Provider] - Follow up as needed Mode of Arrival: Medic Information source: Patient, Relative, Emergency Med Personnel, [facility] Records Notes: This 58-year-old male patient comes emergency room this morning about 1 AM complaining of severe left knee pain. He reports having a left total knee done in [place] by Dr. Quijano on 03/10/2019. On Friday, when they tried to remove the drain, it broke off in the wound, so he reports the wound was reopened to remove the drain. Patient was discharged the following day. He reports having physical therapy on Friday, and Friday. He reports Friday evening about 10 PM the pain got suddenly severe. He states "the pain came out of nowhere". He took 2 of his 5 mg Percocet tablets with minimal relief. He states normally he could take to and go to sleep. He reports that due to his pain his is unable to get him to the car to come the emergency room after they contacted his orthopedic surgeon. They called 911 to transport him. In route EMS gave the patient fentanyl 200 mcg, he states it took the edge off but did not control the pain. About 5 AM, he received 1 mg of Dilaudid here in the emergency room, and he stat es that that brought the pain level down considerably and he is comfortable at this time. He does note a petechial type rash on the anterior distal thigh and ear proximal leg that has developed over the last few days. He denies having a fever. Past history is significant for type 2 diabetes, which has been cured following LAP-BAND surgery and weight loss. He does take Eliquis for atrial fibrillation, he was cardioverted about 6 weeks ago and remains in normal sinus rhythm at this time. He did restart the Eliquis on 03/13/2019. TRAVEL OUTSIDE OF THE [place] IN LAST 30 DAYS: No - Related Data Allergies/Adverse Reactions: No Known Allergies Allergy (Verified 03/17/19 01:24) Home Medications: Sotalol, Eliquis, Percocet Past Medical History - General Information source: Patient, Emergency Med Personnel, [facility] Records - Social History Smoking Status: Former Smoker - Quit over 35 years ago Cigarette use (# per day): No Chew tobacco use (# tins/day): No Smoking Education Provided: No Frequency of alcohol use: None Drug Abuse: None Lives with: Spouse/Significant other Family History: Reviewed & Not Pertinent - Past Medical History Cardiac Medical History: Reports: Hx Atrial Fibrillation Endocrine Medical History: Reports: Hx Diabetes Mellitus Type 2 - Formally Type II bed, cured following lap band surgery Musculoskeletal Medical History: Reports Hx Arthritis Past Surgical History: Reports: Hx Abdominal Surgery - LAP-BAND surgery, Hx Orthopedic Surgery - Left total knee replacement on 03/10/2019, Other - Elective cardioversion for atrial fibrillation on 02/01/2019. - Immunizations Hx Diphtheria, Pertussis, Tetanus Vaccination: No Hx Pneumococcal Vaccination: 08/04/00 Review of Systems - Review of Systems Constitutional: No symptoms reported EENT: No symptoms reported Cardiovascular: No symptoms reported Respiratory: No symptoms reported Gastrointestinal: No symptoms reported Genitourinary: No symptoms reported Musculoskeletal: See HPI Skin: No symptoms reported Hematologic/Lymphatic: No symptoms reported Neurological/Psychological: No symptoms reported Physical Exam - Vital signs Vitals: Temp Pulse Resp BP Pulse Ox 98.2 F 73 20 149/76 H 94 03/17/19 01:23 03/17/19 01:23 03/17/19 01:23 03/17/19 01:23 03/17/19 01:23 Interpretation: Normal - General General appearance: Appears well, Alert In distress: None - HEENT Head: Normocephalic, Atraumatic Eyes: Normal Pupils: PERRL - Respiratory Respiratory status: No respiratory distress Breath sounds: Normal - Cardiovascular Rhythm: Regular Heart sounds: Normal auscultation Murmur: No - Abdominal Inspection: Obese Bowel sounds: Normal Tenderness: Nontender - Back Back: Normal - Extremities General upper extremity: Normal inspection General lower extremity: Other - The left knee is grossly swollen with an anterior longitudinal incision without drainage. The anterior knee and distal thigh are red and quite warm to palpate. There is a petechial-like rash noted to the anterior distal thigh, and the anterior proximal leg just above and below the knee. - Neurological Neuro grossly intact: Yes - Psychological Associated symptoms: Normal affect, Normal mood - Skin Skin Temperature: Warm Skin Moisture: Dry Skin Color: Normal Course - Vital Signs Vital signs: Temp Pulse Resp BP Pulse Ox 98.2 F 73 16 149/80 H 100 03/17/19 01:23 03/17/19 01:23 03/17/19 10:01 03/17/19 10:01 03/17/19 10:01 - Laboratory Result Diagrams: 03/17/19 05:16 03/17/19 05:16 Laboratory results interpreted by me: 03/17/19 03/17/19 03/17/19 05:16 05:16 05:16 RBC 3.70 L Hgb 11.0 L Hct 32.9 L RDW 14.4 H Lymphocytes % 9.0 L PT 15.5 H APTT 38.3 H Sodium 136.6 L Carbon Dioxide 21 L Glucose 113 H Total Protein 6.0 L - Diagnostic Test Radiology reviewed: Image reviewed, Reports reviewed - Recent left total knee, no acute abnormalities noted. - Consults Dr. Quijano Time consulted: 08:50 Consulted provider: other - Will accept at [facility] - Transfer of Care Care transferred to following provider: Dr. Gallegos Notes: 03/17/19 14:56 Pending transfer to [facility] Discharge - Discharge Clinical Impression: Postoperative pain of left knee Condition: Stable Disposition: [facility] Referrals: KHUSHBU MESSINA DO [Primary Care Provider] - Follow up as needed
[2019-03-17] MEDS ORDERED: RINGERS SOLUTION,LACTATED 1,000 ML IV ONE (08:53)
[2019-03-17 10:08] VITALS: BP 149/80
== END 2019-03-17 16:12 | disposition short-term general hospital (02) ==
LOC: ER 01:11
DX: G89.18 Other acute postprocedural pain (principal); M25.562 Pain in left knee; I48.91 Unspecified atrial fibrillation; Z96.652 Presence of left artificial knee joint; Z98.84 Bariatric surgery status; Z79.01 Long term (current) use of anticoagulants
CPT/HCPCS: 96376; 99285; 96361; 96374; 96375; 36415; 85025; 85610; 85730; 80053; 73562; J1170; J2405; J7120

== ENCOUNTER → 2019-04-26 | Outpatient (CLI) | payer BC ==
--- NOTE | 2019-04-26 18:15 | XCELERA REPORT ---
[address] [place] [facility] [address] Lower Extremity Venous Evaluation Procedure: Color flow and duplex imaging of the veins of the left lower extremity as well as the right Common Femoral vein. Right Sided Venous Evaluation The right common femoral vein is fully compressible. Spontaneous and phasic flow is present in the right common femoral vein. Left Sided Venous Evaluation Normal vessel filling wall to wall, compression and augmentation as well as Colour flow down to the infrageniculate veins. Interpretation Summary No duplex evidence of DVT or obstruction in the left lower extremity nor in the right Common Femoral vein. Name: SHELBY CASTILLO Age: 58 yrs Gender: Male : 1960 Patient Status: Outpatient Patient Location: Study Date: 04/26/2019 03:05 PM Reason For Study: LLE PAIN/EDEMA Ordering Physician: AMBER FORDE Performed By: Lorri Holbrook : AMBER FORDE > Mustapha Montez
== END ==
LOC: SP 14:44
PROVIDERS: ATTEND Orthopaedic Surgery Sports Medicine
DX: M17.12 Unilateral primary osteoarthritis, left knee (principal); M79.662 Pain in left lower leg; R60.9 Edema, unspecified
CPT/HCPCS: 93971

== ENCOUNTER → 2020-01-31 | Outpatient (CLI) | payer BC ==
--- NOTE | 2020-01-31 12:23 | RADIOLOGY REPORT (SQ) ---
EXAM DESCRIPTION: MRI LT UPPER JOINT WITHOUT IMAGES COMPLETED DATE/TIME: 01/31/2020 11:57 am REASON FOR STUDY: PAIN IN LEFT SHOULDER M25.512 PAIN IN LEFT SHOULDER COMPARISON: None. TECHNIQUE: Left shoulder images acquired and stored on PACS. Multiplanar imaging to include fat sens itive sequences such as T1, water sensitive sequences such as FST2/STIR, cartilage sensitive sequence s such as FSPD/gradient-echo sequences. LIMITATIONS: Limiting habitus and inhomogeneous fat suppression on T2 sequences. FINDINGS: BONE MARROW AND CORTEX: No worrisome bone lesions or marrow replacement. No occult fractur es. JOINT OR BURSAL EFFUSION: No significant joint or bursal fluid. No suggestion of loose bodies. GLENO-HUMERAL ARTICULATION: Significant joint space narrowing with denuded cartilage and prominent os teophytes. ACROMION AND AC JOINT: Mild -moderate AC arthropathy. ROTATOR CUFF AND INTERVAL: No high-grade partial or full thickness cuff tear detected. Mild fatty atrophy in the teres muscle. LABRUM AND BICEPS LABRAL COMPLEX: Limited assessment of the superior labrum. No gross biceps disru ption. REMAINDER OF LABRUM AND IGHL : No paralabral cyst formation. Generalized degenerative loss likely. PERIARTICULAR AND ADJACENT SOFT TISSUES: No masses or abnormal nodes. OTHER: No other significant finding. IMPRESSION: 1. Marked glenohumeral DJD. 2. AC arthropathy. 3. No significant cuff tear detected, although there is some fatty atrophy particularly in the teres. TECHNICAL DOCUMENTATION: JOB ID: [id number] 2010 [employer]- All Rights Reserved Reading location - IP/workstation name: [email or web address]
== END ==
LOC: RAD 10:52
PROVIDERS: ATTEND Orthopaedic Surgery Sports Medicine
DX: M19.012 Primary osteoarthritis, left shoulder (principal); M25.512 Pain in left shoulder

== ENCOUNTER → 2020-03-27 | Outpatient (CLI) | payer BC ==
--- NOTE | 2020-03-27 12:30 | RADIOLOGY REPORT (SQ) ---
EXAM DESCRIPTION: CHEST PA/LATERAL IMAGES COMPLETED DATE/TIME: 03/27/2020 9:37 am REASON FOR STUDY: CHRONIC COUGH COMPARISON: 07/30/2018 EXAM PARAMETERS: NUMBER OF VIEWS: two views TECHNIQUE: Digital Frontal and Lateral radiographic views of the chest acquired. RADIATION DOSE: NA LIMITATIONS: none FINDINGS: LUNGS AND PLEURA: No opacities, masses or pneumothorax. No pleural effusion. MEDIASTINUM AND HILAR STRUCTURES: No masses or contour abnormalities. HEART AND VASCULAR STRUCTURES: Heart normal size. No evidence for failure. BONES: No acute findings. HARDWARE: None in the chest. OTHER: No other significant finding. IMPRESSION: NO SIGNIFICANT RADIOGRAPHIC FINDING IN THE CHEST. TECHNICAL DOCUMENTATION: JOB ID: [id number] 2010 [employer]- All Rights Reserved Reading location - IP/workstation name: [email or web address]
== END ==
LOC: RAD 09:05
PROVIDERS: ATTEND Nurse Practitioner Family
DX: R05 Cough (principal)
CPT/HCPCS: 71046